=== PATIENT | female | born 1995 | race Caucasian/White ===

== ENCOUNTER 2020-09-26 07:30 | Inpatient (IN) ==
[2020-09-26] MEDS ORDERED: OXYTOCIN 30 UNITS/500 ML BAG IV PRN ×2 (07:40→07:41)
[2020-09-26 08:10] LABS: Hemoglobin 13.3 g/dL (12.0-16.0); Mean Corpuscular Hemoglobin 33.2 pg (25-34); Mean Corpuscular Volume 94.8 fL (80-100); Mean Platelet Volume 10.4 fL (7.4-10.4); Platelet Count 192 K/uL (130-400); RDW Coefficient of Variation 12.7 % (11.5-14.5); RDW Standard Deviation 43.9 fL (36.4-46.3); Red Blood Count 4.01 M/uL (4.2-5.4); White Blood Count 11.52 K/uL (4.8-10.8)
--- NOTE | 2020-09-26 08:19 | History & Physical Report ---
Date of Service September 26, 2020 Assessment & Plan (1) Encounter for induction of labor: Admission and Anticipated Discharge Date Admission Date: September 26, 2020 IUP at 40 5/7 weeks with excellent results from cervical balloon will begin pitocin augmentation of labor she is planning on epidural analgesia when painful anticipate vaginal History of Present Illness Primary Care Provider: Christianne Toledo Patient is a 25 yo white female EDC 09/21/20 who presents for continuation of induction of labor for postterm . She had a cervical balloon successfully placed last evening. she had mild contractions overnight but did not feel the balloon had fallen out. no blood show or SPROM. baby active. GBS negative- Blood Type A positive. has otherwise been uncomplicated. Allergies Allergy/AdvReac Type Severity Reaction Status Date / Time Penicillins Allergy Hives Verified 09/24/20 15:42 Home Medications Home Medications Medication Instructions Recorded Confirmed Type prenat.vits,flaquito,[id number] 1 tab PO DAILY 01/08/20 09/25/20 History docusate sodium 1 tab PO DAILY 04/15/20 09/25/20 History Patient History Medical History Chicken pox Encounter for anatomic survey Surgical History History of surgery on arm reset broken wrist. S/P tonsillectomy Status post wisdom tooth extraction Family History Aunt Colorectal cancer Other Anemia Anxiety Depression Diabetes Drinking problem Dyslipidemia Gestational diabetes Heart disease Hypertension Kidney disease Premature labor Thyroid disease Twin Denies family history of Ovarian cancer Breast cancer Social History Smoking Status: Never smoker Hx Alcohol Use: No Hx Substance Use: No Preferred Language: Guamanian Communication Ability: Effective Beliefs That Will Affect Care: None marital status: marital status details: Jorge Dos Santos (30) [phone] Current Living Situation: Spouse Current Living Situation Comment: lives with spouse, no pets current occupational status: employed current occupation: [employer] Feels Safe at Home: Yes Review of Systems All systems reviewed & are unremarkable except as noted in HPI & below Physical Exam Constitutional: WD/WN, vitals as above Respiratory: normal respiratory effort, lungs clear to auscultation Cardiovascular: RRR, no murmur, no edema Gastrointestinal (Abdomen): normal bowel sounds, soft, nontender, no hepatosplenomegaly Psychiatric: A+Ox3, euthymic affect Genitourinary: Manual OB Exam: + cervical dilation 5 cm, + cervical effacement 100% and + station -1 OB Exam Monitor Tracing: + external FHT monitor used, + external uterine monitor used, + category I and + normal FHT variability cervical balloon was expelled and sitting in the vagina. it was easily removed from the vagina after removing the water from the balloon. Code Status & VTE Plan VTE Prophylaxis Plan VTE Prophylaxis will be ordered: No Coding Level of Care Code None Diagnoses Encounter for induction of labor Z34.90
[2020-09-26] MEDS: LACTATED RINGER'S 1,000 ML IV PRN ×4 (08:26→21:01)
--- NOTE | 2020-09-26 09:25 | Labor Progress Brief Note ---
Date of Service September 26, 2020 Subjective Pt resting, notes ctx less frequent but rates 5/10 Assessment & Plan (1) : 25 y/o G1 at 40 5/7 wga, IOL 1. VSS 2. Fetus cat 1 3. Labor - pit at 1, plan to AROM when more uncomfortable after epidural 4. GBS neg 5. Epidural PRN Admission and Anticipated Discharge Date Admission Date: September 26, 2020 Physical Exam Constitutional: WD/WN, vitals as above no acute distress Gastrointestinal (Abdomen): Percussion/Palpation: abdomen soft; abdomen nontender and no guarding Small rash at clothing line noted, looks like scar but pt reports it is just irritation from clothing Genitourinary: OB Exam Abdomen: + regular contractions (q5min) OB Exam Monitor Tracing: + external FHT monitor used, + external uterine monitor used and + category I (135/mod/+accel/-decel) Results & Data ([facility]) Vital Signs (Past 12 Hours) Vital Signs Temp Pulse Resp BP 09/26/20 08:38 80 104/71 09/26/20 08:31 98.1 F 18 104/71 Coding Level of Care Code None Diagnoses Z34.90
--- NOTE | 2020-09-26 10:40 | Labor Progress Brief Note ---
Date of Service September 26, 2020 Subjective Reports more regular and painful ctx Assessment & Plan (1) : 25 y/o G1 at 40 5/7 wga, IOL 1. VSS 2. Fetus cat 1 3. Labor - pit at 7, plan to AROM when more uncomfortable and gets epidural 4. GBS neg 5. Epidural PRN Admission and Anticipated Discharge Date Admission Date: September 26, 2020 Physical Exam Genitourinary: OB Exam Abdomen: + regular contractions (q4min) Manual OB Exam: + cervical dilation (4-5), + cervical effacement 70% and + station -2 OB Exam Monitor Tracing: + external FHT monitor used, + external uterine monitor used and + category I (135/mod/+accel/-decel) Results & Data ([facility]) Vital Signs (Past 12 Hours) Vital Signs Temp Pulse Resp BP 09/26/20 08:38 80 104/71 09/26/20 08:31 98.1 F 18 104/71 Coding Level of Care Code None Diagnoses Z34.90
[2020-09-26] MEDS ORDERED: fentaNYL citrate 100 MCG/2 ML VIAL ONE ×2 (11:48→18:43)
[2020-09-26] MEDS ORDERED: SODIUM CHLORIDE 0.9% INJ 10 ML VIAL ONE (11:48)
[2020-09-26] MEDS ORDERED: BUPIVACAINE 0.25% 30 ML VIAL ONE (11:48)
[2020-09-26] MEDS ORDERED: ePHEDrine sulfate 50 MG/ML AMP ONE (11:48)
[2020-09-26] MEDS ORDERED: fentaNYL 2MCG/ML ROPIVACAINE 1.25MG/ML 100 ML BAG EPI ONE (11:49)
[2020-09-26] MEDS ORDERED: NALOXONE HCL 0.4 MG/1 ML VIAL/CARP IV PRN (12:12)
[2020-09-26] MEDS ORDERED: ePHEDrine sulfate 50 MG/ML AMP IV PRN (12:12)
[2020-09-26] MEDS ORDERED: PROMETHAZINE HCL 25 MG in SODIUM CHLORIDE 0.9% 50 ML IV PRN (12:12)
[2020-09-26] MEDS ORDERED: ONDANSETRON INJ 2 MG/ML 2 ML VIAL IV PRN (12:12)
[2020-09-26] MEDS ORDERED: diphenhydrAMINE 50 MG/ML VIAL IV PRN (12:12)
[2020-09-26] MEDS ORDERED: NALOXONE HCL 1 MG in SODIUM CHLORIDE 0.9% 1000ML 1,000 ML IV PRN (12:12)
--- NOTE | 2020-09-26 12:14 | Anesthesiology Consultation ---
Date of Service September 26, 2020 Assessment & Plan ASA ASA2 Proposed Anesthesia Anesthesia Type: Labor Epidural Risk / Benefits Reviewed With: PT / POA / Parent / Guardian, Accepts Plan and Informed Consent Obtained History Height/Weight Height: 5 ft 3 in Weight: 99.337 kg Allergies Allergy/AdvReac Type Severity Reaction Status Date / Time Penicillins Allergy Hives Verified 09/24/20 15:42 Medications Home Medications Medication Instructions Recorded Confirmed Last Taken prenat.vits,flaquito,ssr-kccf-smhtj 1 tab PO DAILY 01/08/20 09/26/20 09/25/20 13:00 docusate sodium 1 tab PO DAILY 04/15/20 09/26/20 09/25/20 13:00 Active Medications Generic Name Dose Route Start Last Admin Trade Name Freq PRN Reason Stop Dose Admin Lactated Ringer's 1,000 mls @ 125 mls/hr 09/26/20 07:40 09/26/20 12:20 Lr IV 09/28/20 07:39 999 mls/hr .Q8H PRN Administration L&D Protocol Protocol Oxytocin 30 units in 500 mls @ 11 mls/hr 09/26/20 07:41 09/26/20 11:35 Pitocin IV 09/28/20 07:40 0.66 units/hr .Q24H PRN 11 mls/hr Labor Induction/Augmentation Titration Protocol 0.66 UNITS/HR Past Medical History Medical History Chicken pox Encounter for anatomic survey Exercise / Class Metabolic Activity II 4-5 Yardwork/Stairs/Walk up hill Past Family History Family History Aunt Colorectal cancer Other Anemia Anxiety Depression Diabetes Drinking problem Dyslipidemia Gestational diabetes Heart disease Hypertension Kidney disease Premature labor Thyroid disease Twin Denies family history of Ovarian cancer Breast cancer Past Surgical History Surgical History History of surgery on arm reset broken wrist. S/P tonsillectomy Status post wisdom tooth extraction Past Anesthesia History No Hx of Anesthesia Complications and No Family Hx of Anesthesia Complications History of PONV No Hx of PONV and No Hx of Motion Sickness Social History Smoking Status: Never smoker Do You Dip or Chew Tobacco: No Hx Alcohol Use: No Hx Substance Use: No substance use type: does not use Review of Systems denies fever/cough/ colds/ chest pain/ SOB/ ALBERTO denies ALBERTO Physical Exam Vital Signs Last Vital Signs Temp 36.7 C 09/26/20 08:31 Pulse 78 09/26/20 12:53 Resp 18 09/26/20 08:31 BP 103/56 L 09/26/20 12:53 Pulse Ox 100 09/26/20 12:53 ENMT Mouth: no TMJ abnormality and no dentition abnormality Thyromental Distance: > or= 3.5 Finger Breadths Mallampati Class: II Neck neck extension not limited Respiratory normal respiratory effort; no respiratory distress Auscultation: lungs clear to auscultation bilaterally Cardiovascular Rate/Rhythm: regular rate and regular rhythm Neurologic moves all extremities Psychiatric Orientation: alert and oriented x 3 Testing Laboratory Results 09/26/20 07:51
--- NOTE | 2020-09-26 13:09 | Labor Progress Brief Note ---
Date of Service September 26, 2020 Subjective Comfortable with epidural Assessment & Plan (1) : 25 y/o G1 at 40 5/7 wga, IOL 1. VSS 2. Fetus cat 1 3. Labor - pit at 11, s/p arom. Continue augmentation 4. GBS neg 5. Epidural in place Admission and Anticipated Discharge Date Admission Date: September 26, 2020 Physical Exam Genitourinary: OB Exam Abdomen: + regular contractions (q3-4min) Manual OB Exam: + cervical dilation 5 cm, + cervical effacement 70% and + station -1 OB Exam Monitor Tracing: + external FHT monitor used, + external uterine monitor used and + category I (125/mod/+accel/-decel) AROM clear fluid Results & Data ([facility]) Vital Signs (Past 12 Hours) Vital Signs Temp Pulse Resp BP Pulse Ox 09/26/20 13:03 86 99 09/26/20 12:58 80 99 09/26/20 12:53 78 103/56 L 100 09/26/20 12:50 79 107/60 09/26/20 12:48 82 100/56 L 99 09/26/20 12:46 78 108/57 L 09/26/20 12:44 85 107/55 L 09/26/20 12:43 84 99 09/26/20 12:42 80 107/62 09/26/20 12:40 87 103/53 L 09/26/20 12:38 89 96/54 L 100 09/26/20 12:36 92 H 106/53 L 09/26/20 12:34 90 114/59 L 09/26/20 12:33 104 H 100 09/26/20 12:32 97 H 115/55 L 09/26/20 12:31 96 H 115/55 L 09/26/20 12:28 69 100 09/26/20 12:23 92 H 100 09/26/20 12:18 119 H 100 09/26/20 12:13 84 100 09/26/20 11:14 76 118/64 09/26/20 08:38 80 104/71 09/26/20 08:31 98.1 F 18 104/71 Coding Level of Care Code None Diagnoses Z34.90
--- NOTE | 2020-09-26 15:22 | Labor Progress Brief Note ---
Date of Service September 26, 2020 Subjective Comfortable with epidural Assessment & Plan (1) : 25 y/o G1 at 40 5/7 wga, IOL 1. VSS 2. Fetus cat 1 3. Labor - pit at 15, s/p arom. Will encourage peanut ball, head may be asynclitic 4. GBS neg 5. Epidural in place Admission and Anticipated Discharge Date Admission Date: September 26, 2020 Physical Exam Genitourinary: OB Exam Abdomen: + regular contractions (q3-4min) Manual OB Exam: + cervical dilation 5 cm, + cervical effacement 70% and + station -1 OB Exam Monitor Tracing: + external FHT monitor used, + external uterine monitor used and + category I (125/mod/+accel/-decel) Cervix is more present on pt's left, some caput Results & Data ([facility]) Vital Signs (Past 12 Hours) Vital Signs Temp Pulse Resp BP Pulse Ox 09/26/20 15:18 75 99 09/26/20 15:13 71 100 09/26/20 15:08 62 100 09/26/20 15:07 63 119/62 09/26/20 15:03 98.1 F 69 18 109/67 99 09/26/20 14:58 69 100 09/26/20 14:53 61 99 09/26/20 14:51 59 L 107/63 09/26/20 14:48 59 L 100 09/26/20 14:43 58 L 100 09/26/20 14:38 61 100 09/26/20 14:37 57 L 117/62 09/26/20 14:33 74 100 09/26/20 14:28 95 H 100 09/26/20 14:23 72 101/56 L 100 09/26/20 14:18 74 100 09/26/20 14:13 62 99 09/26/20 14:08 73 100 09/26/20 14:07 63 102/58 L 09/26/20 14:03 63 100 09/26/20 14:00 98.1 F 18 09/26/20 13:58 66 100 09/26/20 13:53 77 101/57 L 97 09/26/20 13:48 68 95/60 L 99 09/26/20 13:43 66 100 09/26/20 13:38 75 99 09/26/20 13:37 79 86/51 L 09/26/20 13:33 76 98 09/26/20 13:28 78 99 09/26/20 13:23 84 99 09/26/20 13:22 84 98/56 L 09/26/20 13:18 76 98 09/26/20 13:13 80 98 09/26/20 13:08 84 99 09/26/20 13:03 86 99 09/26/20 13:00 98.1 F 20 09/26/20 12:58 80 99 09/26/20 12:53 78 103/56 L 100 09/26/20 12:50 79 107/60 09/26/20 12:48 82 100/56 L 99 09/26/20 12:46 78 108/57 L 09/26/20 12:44 85 107/55 L 09/26/20 12:43 84 99 09/26/20 12:42 80 107/62 09/26/20 12:40 87 103/53 L 09/26/20 12:38 89 96/54 L 100 09/26/20 12:36 92 H 106/53 L 09/26/20 12:34 90 114/59 L 09/26/20 12:33 104 H 100 09/26/20 12:32 97 H 115/55 L 09/26/20 12:31 96 H 115/55 L 09/26/20 12:28 69 100 09/26/20 12:23 92 H 100 09/26/20 12:18 119 H 100 09/26/20 12:13 84 100 09/26/20 11:45 97.7 F 22 09/26/20 11:14 76 118/64 09/26/20 08:38 80 104/71 09/26/20 08:31 98.1 F 18 104/71 Coding Level of Care Code None Diagnoses Z34.90
[2020-09-26] MEDS ORDERED: NURSING L&D Epidural Breakthrough Pain Update ONE (17:39)
[2020-09-26] MEDS: fentaNYL 2MCG/ML ROPIVACAINE 1.25MG/ML 100 ML BAG EPI PRN ×2 (18:28→23:50)
[2020-09-26] MEDS ORDERED: LIDOCAINE/EPINEPHRINE 2% 1:200,000 20 ML SDV ONE (18:43)
--- NOTE | 2020-09-26 18:59 | Communication Note ---
Date of Service: September 26, 2020 pt given 100 mcg of fentanyl and 5 ml 2% lidocaine with epi through epidural for pain control.
--- NOTE | 2020-09-26 19:03 | Labor Progress Brief Note ---
Date of Service September 26, 2020 Subjective Increased ctx pain, was checked earlier by nursing due to pressure and is 8cm Assessment & Plan (1) : (1) : 25 y/o G1 at 40 5/7 wga, IOL 1. VSS 2. Fetus cat 1 3. Labor - pit at 19, s/p arom. Pt progressing on nursing's exam, will continue to monitor 4. GBS neg 5. Epidural in place, just rebolused by anesthesia Admission and Anticipated Discharge Date Admission Date: September 26, 2020 Physical Exam Genitourinary: OB Exam Abdomen: + regular contractions (q3) OB Exam Monitor Tracing: + external FHT monitor used, + external uterine monitor used and + category II (135/mod/+accel/intermit variables) Results & Data ([facility]) Vital Signs (Past 12 Hours) Vital Signs Temp Pulse Resp BP Pulse Ox 09/26/20 18:58 76 99 09/26/20 18:53 80 100 09/26/20 18:52 90 138/74 09/26/20 18:50 77 138/71 09/26/20 18:48 77 99 09/26/20 18:43 77 100 09/26/20 18:38 78 100 09/26/20 18:36 75 135/67 09/26/20 18:33 77 99 09/26/20 18:28 80 99 09/26/20 18:23 74 100 09/26/20 18:21 77 129/61 09/26/20 18:18 80 100 09/26/20 18:13 76 97 09/26/20 18:08 73 133/63 100 09/26/20 18:03 76 99 09/26/20 17:58 86 100 09/26/20 17:53 74 100 09/26/20 17:51 75 138/69 09/26/20 17:48 75 100 09/26/20 17:43 75 98 09/26/20 17:38 80 100 09/26/20 17:37 72 150/71 H 09/26/20 17:33 94 H 100 09/26/20 17:28 72 100 09/26/20 17:23 79 99 09/26/20 17:22 81 125/67 09/26/20 17:18 79 100 09/26/20 17:13 74 100 09/26/20 17:08 81 100 09/26/20 17:03 81 100 09/26/20 16:58 74 100 09/26/20 16:57 98.6 F 09/26/20 16:53 78 100 09/26/20 16:52 70 118/60 09/26/20 16:48 69 100 09/26/20 16:43 75 100 09/26/20 16:38 79 99 09/26/20 16:37 72 106/61 09/26/20 16:33 81 99 09/26/20 16:28 74 100 09/26/20 16:23 66 100 09/26/20 16:21 67 95/56 L 09/26/20 16:18 67 100 09/26/20 16:13 66 100 09/26/20 16:08 85 100 09/26/20 16:06 69 92/53 L 09/26/20 16:03 72 100 09/26/20 15:58 68 100 09/26/20 15:53 60 100 09/26/20 15:51 64 93/55 L 09/26/20 15:48 62 100 09/26/20 15:43 70 100 09/26/20 15:38 70 100 09/26/20 15:36 67 99/57 L 09/26/20 15:33 64 100 09/26/20 15:28 59 L 100 09/26/20 15:23 73 100 09/26/20 15:22 64 104/55 L 09/26/20 15:18 75 99 09/26/20 15:13 71 100 09/26/20 15:08 62 100 09/26/20 15:07 63 119/62 09/26/20 15:03 98.1 F 69 18 109/67 99 09/26/20 14:58 69 100 09/26/20 14:53 61 99 09/26/20 14:51 59 L 107/63 09/26/20 14:48 59 L 100 09/26/20 14:43 58 L 100 09/26/20 14:38 61 100 09/26/20 14:37 57 L 117/62 09/26/20 14:33 74 100 09/26/20 14:28 95 H 100 09/26/20 14:23 72 101/56 L 100 09/26/20 14:18 74 100 09/26/20 14:13 62 99 10/29/20 14:08 73 100 09/26/20 14:07 63 102/58 L 09/26/20 14:03 63 100 09/26/20 14:00 98.1 F 18 09/26/20 13:58 66 100 09/26/20 13:53 77 101/57 L 97 09/26/20 13:48 68 95/60 L 99 09/26/20 13:43 66 100 09/26/20 13:38 75 99 09/26/20 13:37 79 86/51 L 09/26/20 13:33 76 98 09/26/20 13:28 78 99 09/26/20 13:23 84 99 09/26/20 13:22 84 98/56 L 09/26/20 13:18 76 98 09/26/20 13:13 80 98 09/26/20 13:08 84 99 09/26/20 13:03 86 99 09/26/20 13:00 98.1 F 20 09/26/20 12:58 80 99 09/26/20 12:53 78 103/56 L 100 09/26/20 12:50 79 107/60 09/26/20 12:48 82 100/56 L 99 09/26/20 12:46 78 108/57 L 09/26/20 12:44 85 107/55 L 09/26/20 12:43 84 99 09/26/20 12:42 80 107/62 09/26/20 12:40 87 103/53 L 09/26/20 12:38 89 96/54 L 100 09/26/20 12:36 92 H 106/53 L 09/26/20 12:34 90 114/59 L 09/26/20 12:33 104 H 100 09/26/20 12:32 97 H 115/55 L 09/26/20 12:31 96 H 115/55 L 09/26/20 12:28 69 100 09/26/20 12:23 92 H 100 09/26/20 12:18 119 H 100 09/26/20 12:13 84 100 09/26/20 11:45 97.7 F 22 09/26/20 11:14 76 118/64 09/26/20 08:38 80 104/71 09/26/20 08:31 98.1 F 18 104/71 Coding Level of Care Code None Diagnoses Z34.90
--- NOTE | 2020-09-26 20:31 | Labor Progress Brief Note ---
Date of Service September 26, 2020 Subjective Feeling a lot of pressure with each contraction Assessment & Plan (1) : (1) : 25 y/o G1 at 40 5/7 wga, IOL 1. VSS 2. Fetus cat 1 3. Labor - pit at 20, IUPC placed for more accurate monitoring 4. GBS neg 5. Epidural in place, rebolused by anesthesia Admission and Anticipated Discharge Date Admission Date: September 26, 2020 Physical Exam Genitourinary: OB Exam Abdomen: + regular contractions (q3-4min) Manual OB Exam: + cervical dilation 8 cm, + cervical effacement 80% and + station -1 OB Exam Monitor Tracing: + external FHT monitor used, + intra-uterine pressure catheter used (placed) and + category I (135/mod/+accel/-decel) Results & Data ([facility]) Vital Signs (Past 12 Hours) Vital Signs Temp Pulse Resp BP Pulse Ox 09/26/20 20:23 70 100 09/26/20 20:21 74 93 09/26/20 20:18 78 96 09/26/20 20:13 80 100 09/26/20 20:08 81 99 09/26/20 20:07 87 93 09/26/20 20:03 78 100 09/26/20 19:58 82 100 09/26/20 19:56 66 91 09/26/20 19:53 76 99 09/26/20 19:52 88 142/65 H 09/26/20 19:50 77 94 09/26/20 19:48 81 99 09/26/20 19:44 79 92 09/26/20 19:43 77 95 09/26/20 19:38 84 98 09/26/20 19:36 83 145/68 H 09/26/20 19:33 78 99 09/26/20 19:28 83 100 09/26/20 19:26 80 94 09/26/20 19:23 79 99 09/26/20 19:18 82 100 09/26/20 19:15 81 93 09/26/20 19:13 84 100 09/26/20 19:08 85 20 99 09/26/20 19:03 80 96 09/26/20 18:58 76 99 09/26/20 18:53 80 100 09/26/20 18:52 90 138/74 09/26/20 18:50 77 138/71 09/26/20 18:48 77 99 09/26/20 18:43 77 100 09/26/20 18:38 78 100 09/26/20 18:36 75 135/67 09/26/20 18:33 77 99 09/26/20 18:28 80 99 09/26/20 18:23 74 100 09/26/20 18:21 77 129/61 09/26/20 18:18 80 100 09/26/20 18:13 76 97 09/26/20 18:08 73 133/63 100 09/26/20 18:03 76 99 09/26/20 17:58 86 100 09/26/20 17:53 74 100 09/26/20 17:51 75 138/69 09/26/20 17:48 75 100 09/26/20 17:43 75 98 09/26/20 17:38 80 100 09/26/20 17:37 72 150/71 H 09/26/20 17:33 94 H 100 09/26/20 17:28 72 100 09/26/20 17:23 79 99 09/26/20 17:22 81 125/67 09/26/20 17:18 79 100 09/26/20 17:13 74 100 09/26/20 17:08 81 100 09/26/20 17:03 81 100 09/26/20 16:58 74 100 09/26/20 16:57 98.6 F 09/26/20 16:53 78 100 09/26/20 16:52 70 118/60 09/26/20 16:48 69 100 09/26/20 16:43 75 100 09/26/20 16:38 79 99 09/26/20 16:37 72 106/61 09/26/20 16:33 81 99 09/26/20 16:28 74 100 09/26/20 16:23 66 100 09/26/20 16:21 67 95/56 L 09/26/20 16:18 67 100 09/26/20 16:13 66 100 09/26/20 16:08 85 100 09/26/20 16:06 69 92/53 L 09/26/20 16:03 72 100 09/26/20 15:58 68 100 09/26/20 15:53 60 100 09/26/20 15:51 64 93/55 L 09/26/20 15:48 62 100 09/26/20 15:43 70 100 09/26/20 15:38 70 100 09/26/20 15:36 67 99/57 L 09/26/20 15:33 64 100 09/26/20 15:28 59 L 100 09/26/20 15:23 73 100 09/26/20 15:22 64 104/55 L 09/26/20 15:18 75 99 09/26/20 15:13 71 100 09/26/20 15:08 62 100 09/26/20 15:07 63 119/62 09/26/20 15:03 98.1 F 69 18 109/67 99 09/26/20 14:58 69 100 09/26/20 14:53 61 99 09/26/20 14:51 59 L 107/63 09/26/20 14:48 59 L 100 09/26/20 14:43 58 L 100 09/26/20 14:38 61 100 09/26/20 14:37 57 L 117/62 09/26/20 14:33 74 100 09/26/20 14:28 95 H 100 09/26/20 14:23 72 101/56 L 100 09/26/20 14:18 74 100 09/26/20 14:13 62 99 09/26/20 14:08 73 100 09/26/20 14:07 63 102/58 L 09/26/20 14:03 63 100 09/26/20 14:00 98.1 F 18 09/26/20 13:58 66 100 09/26/20 13:53 77 101/57 L 97 09/26/20 13:48 68 95/60 L 99 09/26/20 13:43 66 100 09/26/20 13:38 75 99 09/26/20 13:37 79 86/51 L 09/26/20 13:33 76 98 09/26/20 13:28 78 99 09/26/20 13:23 84 99 09/26/20 13:22 84 98/56 L 09/26/20 13:18 76 98 09/26/20 13:13 80 98 09/26/20 13:08 84 99 09/26/20 13:03 86 99 09/26/20 13:00 98.1 F 20 09/26/20 12:58 80 99 10/29/20 12:53 78 103/56 L 100 09/26/20 12:50 79 107/60 09/26/20 12:48 82 100/56 L 99 09/26/20 12:46 78 108/57 L 09/26/20 12:44 85 107/55 L 09/26/20 12:43 84 99 09/26/20 12:42 80 107/62 09/26/20 12:40 87 103/53 L 09/26/20 12:38 89 96/54 L 100 09/26/20 12:36 92 H 106/53 L 09/26/20 12:34 90 114/59 L 09/26/20 12:33 104 H 100 09/26/20 12:32 97 H 115/55 L 09/26/20 12:31 96 H 115/55 L 09/26/20 12:28 69 100 09/26/20 12:23 92 H 100 09/26/20 12:18 119 H 100 09/26/20 12:13 84 100 09/26/20 11:45 97.7 F 22 09/26/20 11:14 76 118/64 09/26/20 08:38 80 104/71 09/26/20 08:31 98.1 F 18 104/71 Coding Level of Care Code None Diagnoses Z34.90
--- NOTE | 2020-09-26 21:37 | Labor Progress Brief Note ---
Date of Service September 26, 2020 Subjective Very strong urge to push Assessment & Plan (1) : (1) : 25 y/o G1 at 40 5/7 wga, IOL 1. VSS 2. Fetus cat 1 3. Labor - pit at 20, IUPC in place. Rec not pushing quite yet due to lip anteriorly. Has progressed a little bit since last exam, continue to monitor 4. GBS neg 5. Epidural in place, rebolused by anesthesia Admission and Anticipated Discharge Date Admission Date: September 26, 2020 Physical Exam Genitourinary: OB Exam Abdomen: + regular contractions (q3-4min) Manual OB Exam: + cervical dilation 9 cm, + cervical effacement 90% and + station 0 OB Exam Monitor Tracing: + external FHT monitor used, + intra-uterine pressure catheter used (placed) and + category I (120/mod/+accel/-decel) Results & Data ([facility]) Vital Signs (Past 12 Hours) Vital Signs Temp Pulse Resp BP Pulse Ox 09/26/20 21:33 81 100 09/26/20 21:28 87 99 09/26/20 21:23 111 H 99 09/26/20 21:18 102 H 100 09/26/20 21:16 82 89 L 09/26/20 21:13 80 99 09/26/20 21:10 82 89 L 09/26/20 21:08 97 H 99 09/26/20 21:03 78 98 09/26/20 20:58 70 100 09/26/20 20:53 70 98 09/26/20 20:52 98.1 F 18 09/26/20 20:48 71 98 09/26/20 20:46 81 129/66 09/26/20 20:43 85 100 09/26/20 20:40 88 93 09/26/20 20:38 72 98 09/26/20 20:34 78 93 09/26/20 20:33 77 94 09/26/20 20:28 74 97 09/26/20 20:27 71 92 09/26/20 20:23 70 100 09/26/20 20:21 74 93 09/26/20 20:18 78 96 09/26/20 20:13 80 100 09/26/20 20:08 81 99 09/26/20 20:07 87 93 09/26/20 20:03 78 100 09/26/20 19:58 82 100 09/26/20 19:56 66 91 09/26/20 19:53 76 99 09/26/20 19:52 88 142/65 H 09/26/20 19:50 77 94 09/26/20 19:48 81 99 09/26/20 19:44 79 92 09/26/20 19:43 77 95 09/26/20 19:38 84 98 09/26/20 19:36 83 145/68 H 09/26/20 19:33 78 99 09/26/20 19:28 83 100 09/26/20 19:26 80 94 09/26/20 19:23 79 99 09/26/20 19:18 82 100 09/26/20 19:15 81 93 09/26/20 19:13 84 100 09/26/20 19:08 85 20 99 09/26/20 19:03 80 96 09/26/20 18:58 76 99 09/26/20 18:53 80 100 09/26/20 18:52 90 138/74 09/26/20 18:50 77 138/71 09/26/20 18:48 77 99 09/26/20 18:43 77 100 09/26/20 18:38 78 100 09/26/20 18:36 75 135/67 09/26/20 18:33 77 99 09/26/20 18:28 80 99 09/26/20 18:23 74 100 09/26/20 18:21 77 129/61 09/26/20 18:18 80 100 09/26/20 18:13 76 97 09/26/20 18:08 73 133/63 100 09/26/20 18:03 76 99 09/26/20 17:58 86 100 09/26/20 17:53 74 100 09/26/20 17:51 75 138/69 09/26/20 17:48 75 100 09/26/20 17:43 75 98 09/26/20 17:38 80 100 09/26/20 17:37 72 150/71 H 09/26/20 17:33 94 H 100 09/26/20 17:28 72 100 09/26/20 17:23 79 99 09/26/20 17:22 81 125/67 09/26/20 17:18 79 100 09/26/20 17:13 74 100 10/29/20 17:08 81 100 09/26/20 17:03 81 100 09/26/20 16:58 74 100 09/26/20 16:57 98.6 F 09/26/20 16:53 78 100 09/26/20 16:52 70 118/60 09/26/20 16:48 69 100 09/26/20 16:43 75 100 09/26/20 16:38 79 99 09/26/20 16:37 72 106/61 09/26/20 16:33 81 99 09/26/20 16:28 74 100 09/26/20 16:23 66 100 09/26/20 16:21 67 95/56 L 09/26/20 16:18 67 100 09/26/20 16:13 66 100 09/26/20 16:08 85 100 09/26/20 16:06 69 92/53 L 09/26/20 16:03 72 100 09/26/20 15:58 68 100 09/26/20 15:53 60 100 09/26/20 15:51 64 93/55 L 09/26/20 15:48 62 100 09/26/20 15:43 70 100 09/26/20 15:38 70 100 09/26/20 15:36 67 99/57 L 09/26/20 15:33 64 100 09/26/20 15:28 59 L 100 09/26/20 15:23 73 100 09/26/20 15:22 64 104/55 L 09/26/20 15:18 75 99 09/26/20 15:13 71 100 09/26/20 15:08 62 100 09/26/20 15:07 63 119/62 09/26/20 15:03 98.1 F 69 18 109/67 99 09/26/20 14:58 69 100 09/26/20 14:53 61 99 09/26/20 14:51 59 L 107/63 09/26/20 14:48 59 L 100 09/26/20 14:43 58 L 100 09/26/20 14:38 61 100 09/26/20 14:37 57 L 117/62 09/26/20 14:33 74 100 09/26/20 14:28 95 H 100 09/26/20 14:23 72 101/56 L 100 09/26/20 14:18 74 100 09/26/20 14:13 62 99 09/26/20 14:08 73 100 09/26/20 14:07 63 102/58 L 09/26/20 14:03 63 100 09/26/20 14:00 98.1 F 18 09/26/20 13:58 66 100 09/26/20 13:53 77 101/57 L 97 09/26/20 13:48 68 95/60 L 99 09/26/20 13:43 66 100 09/26/20 13:38 75 99 09/26/20 13:37 79 86/51 L 09/26/20 13:33 76 98 09/26/20 13:28 78 99 09/26/20 13:23 84 99 09/26/20 13:22 84 98/56 L 09/26/20 13:18 76 98 09/26/20 13:13 80 98 09/26/20 13:08 84 99 09/26/20 13:03 86 99 09/26/20 13:00 98.1 F 20 09/26/20 12:58 80 99 09/26/20 12:53 78 103/56 L 100 09/26/20 12:50 79 107/60 09/26/20 12:48 82 100/56 L 99 09/26/20 12:46 78 108/57 L 09/26/20 12:44 85 107/55 L 09/26/20 12:43 84 99 09/26/20 12:42 80 107/62 09/26/20 12:40 87 103/53 L 09/26/20 12:38 89 96/54 L 100 09/26/20 12:36 92 H 106/53 L 09/26/20 12:34 90 114/59 L 09/26/20 12:33 104 H 100 09/26/20 12:32 97 H 115/55 L 09/26/20 12:31 96 H 115/55 L 09/26/20 12:28 69 100 09/26/20 12:23 92 H 100 09/26/20 12:18 119 H 100 09/26/20 12:13 84 100 09/26/20 11:45 97.7 F 22 09/26/20 11:14 76 118/64 Coding Level of Care Code None Diagnoses Z34.90
--- NOTE | 2020-09-26 23:27 | Labor Progress Brief Note ---
Date of Service September 26, 2020 Subjective Strong urge to push Assessment & Plan (1) : (1) : 25 y/o G1 at 40 5/7 wga, IOL 1. VSS 2. Fetus cat 1 3. Labor - pit was halved and paused with initial pushing, will start pushing as lip has gone away and add pit back as needed 4. GBS neg 5. Epidural in place, rebolused by anesthesia Admission and Anticipated Discharge Date Admission Date: September 26, 2020 Physical Exam Genitourinary: OB Exam Abdomen: + regular contractions (q3-5min) Manual OB Exam: + cervical dilation 10 cm, + cervical effacement 90% and + station + 1 OB Exam Monitor Tracing: + external FHT monitor used, + intra-uterine pressure catheter used (placed) and + category I (130/mod/+accel/-decel) Results & Data ([facility]) Vital Signs (Past 12 Hours) Vital Signs Temp Pulse Resp BP Pulse Ox 09/26/20 23:23 77 97 09/26/20 23:18 104 H 98 09/26/20 23:15 107 H 91 09/26/20 23:13 74 99 09/26/20 23:08 106 H 99 09/26/20 23:03 80 99 09/26/20 23:00 95 H 92 09/26/20 22:58 100 H 98 09/26/20 22:53 76 99 09/26/20 22:48 80 100 09/26/20 22:43 75 99 09/26/20 22:42 70 134/62 09/26/20 22:40 97 H 92 09/26/20 22:39 98.6 F 20 09/26/20 22:38 73 97 09/26/20 22:33 75 99 09/26/20 22:28 80 99 09/26/20 22:23 79 100 09/26/20 22:19 98 H 92 09/26/20 22:18 78 96 09/26/20 22:13 75 97 09/26/20 22:08 83 98 09/26/20 22:04 86 92 09/26/20 22:03 75 100 09/26/20 21:58 76 94 09/26/20 21:55 74 133/64 09/26/20 21:54 18 09/26/20 21:53 80 98 09/26/20 21:48 76 98 09/26/20 21:43 87 100 09/26/20 21:38 73 100 09/26/20 21:33 81 100 09/26/20 21:28 87 99 09/26/20 21:23 111 H 99 09/26/20 21:18 102 H 100 09/26/20 21:16 82 89 L 09/26/20 21:13 80 99 09/26/20 21:10 82 89 L 09/26/20 21:08 97 H 99 09/26/20 21:03 78 98 09/26/20 20:58 70 100 09/26/20 20:53 70 98 09/26/20 20:52 98.1 F 18 09/26/20 20:48 71 98 09/26/20 20:46 81 129/66 09/26/20 20:43 85 100 09/26/20 20:40 88 93 09/26/20 20:38 72 98 09/26/20 20:34 78 93 09/26/20 20:33 77 94 09/26/20 20:28 74 97 09/26/20 20:27 71 92 09/26/20 20:23 70 100 09/26/20 20:21 74 93 09/26/20 20:18 78 96 09/26/20 20:13 80 100 09/26/20 20:08 81 99 09/26/20 20:07 87 93 09/26/20 20:03 78 100 09/26/20 19:58 82 100 09/26/20 19:56 66 91 09/26/20 19:53 76 99 09/26/20 19:52 88 142/65 H 09/26/20 19:50 77 94 09/26/20 19:48 81 99 09/26/20 19:44 79 92 09/26/20 19:43 77 95 09/26/20 19:38 84 98 09/26/20 19:36 83 145/68 H 09/26/20 19:33 78 99 09/26/20 19:28 83 100 09/26/20 19:26 80 94 09/26/20 19:23 79 99 09/26/20 19:18 82 100 09/26/20 19:15 81 93 09/26/20 19:13 84 100 09/26/20 19:08 85 20 99 09/26/20 19:03 80 96 09/26/20 18:58 76 99 09/26/20 18:53 80 100 09/26/20 18:52 90 138/74 09/26/20 18:50 77 138/71 09/26/20 18:48 77 99 09/26/20 18:43 77 100 09/26/20 18:38 78 100 09/26/20 18:36 75 135/67 09/26/20 18:33 77 99 09/26/20 18:28 80 99 09/26/20 18:23 74 100 09/26/20 18:21 77 129/61 09/26/20 18:18 80 100 09/26/20 18:13 76 97 09/26/20 18:08 73 133/63 100 09/26/20 18:03 76 99 09/26/20 17:58 86 100 09/26/20 17:53 74 100 09/26/20 17:51 75 138/69 09/26/20 17:48 75 100 09/26/20 17:43 75 98 09/26/20 17:38 80 100 09/26/20 17:37 72 150/71 H 09/26/20 17:33 94 H 100 09/26/20 17:28 72 100 09/26/20 17:23 79 99 09/26/20 17:22 81 125/67 09/26/20 17:18 79 100 09/26/20 17:13 74 100 09/26/20 17:08 81 100 09/26/20 17:03 81 100 09/26/20 16:58 74 100 09/26/20 16:57 98.6 F 09/26/20 16:53 78 100 09/26/20 16:52 70 118/60 09/26/20 16:48 69 100 09/26/20 16:43 75 100 09/26/20 16:38 79 99 09/26/20 16:37 72 106/61 09/26/20 16:33 81 99 09/26/20 16:28 74 100 09/26/20 16:23 66 100 09/26/20 16:21 67 95/56 L 09/26/20 16:18 67 100 09/26/20 16:13 66 100 09/26/20 16:08 85 100 09/26/20 16:06 69 92/53 L 09/26/20 16:03 72 100 09/26/20 15:58 68 100 09/26/20 15:53 60 100 09/26/20 15:51 64 93/55 L 09/26/20 15:48 62 100 09/26/20 15:43 70 100 09/26/20 15:38 70 100 09/26/20 15:36 67 99/57 L 09/26/20 15:33 64 100 09/26/20 15:28 59 L 100 09/26/20 15:23 73 100 09/26/20 15:22 64 104/55 L 09/26/20 15:18 75 99 09/26/20 15:13 71 100 09/26/20 15:08 62 100 09/26/20 15:07 63 119/62 09/26/20 15:03 98.1 F 69 18 109/67 99 09/26/20 14:58 69 100 09/26/20 14:53 61 99 09/26/20 14:51 59 L 107/63 09/26/20 14:48 59 L 100 09/26/20 14:43 58 L 100 09/26/20 14:38 61 100 09/26/20 14:37 57 L 117/62 09/26/20 14:33 74 100 09/26/20 14:28 95 H 100 09/26/20 14:23 72 101/56 L 100 09/26/20 14:18 74 100 09/26/20 14:13 62 99 09/26/20 14:08 73 100 09/26/20 14:07 63 102/58 L 09/26/20 14:03 63 100 09/26/20 14:00 98.1 F 18 09/26/20 13:58 66 100 09/26/20 13:53 77 101/57 L 97 09/26/20 13:48 68 95/60 L 99 09/26/20 13:43 66 100 09/26/20 13:38 75 99 09/26/20 13:37 79 86/51 L 09/26/20 13:33 76 98 09/26/20 13:28 78 99 09/26/20 13:23 84 99 09/26/20 13:22 84 98/56 L 09/26/20 13:18 76 98 09/26/20 13:13 80 98 09/26/20 13:08 84 99 09/26/20 13:03 86 99 09/26/20 13:00 98.1 F 20 09/26/20 12:58 80 99 09/26/20 12:53 78 103/56 L 100 09/26/20 12:50 79 107/60 09/26/20 12:48 82 100/56 L 99 09/26/20 12:46 78 108/57 L 09/26/20 12:44 85 107/55 L 09/26/20 12:43 84 99 09/26/20 12:42 80 107/62 09/26/20 12:40 87 103/53 L 09/26/20 12:38 89 96/54 L 100 09/26/20 12:36 92 H 106/53 L 09/26/20 12:34 90 114/59 L 09/26/20 12:33 104 H 100 09/26/20 12:32 97 H 115/55 L 09/26/20 12:31 96 H 115/55 L 09/26/20 12:28 69 100 09/26/20 12:23 92 H 100 09/26/20 12:18 119 H 100 09/26/20 12:13 84 100 09/26/20 11:45 97.7 F 22 Coding Level of Care Code None Diagnoses Z34.90
[2020-09-27] MEDS ORDERED: GENTAMICIN SULFATE 40 MG/ML 2 ML VIAL IV ONE (01:01)
[2020-09-27] MEDS ORDERED: GENTAMICIN CONSULT ACTIVE PRN (01:01)
[2020-09-27] MEDS ORDERED: AZITHROMYCIN 500 MG in DEXTROSE 5% 250 ML IV STA (01:02)
[2020-09-27] MEDS ORDERED: fentaNYL citrate 100 MCG/2 ML VIAL ONE ×5 (01:03→01:50)
[2020-09-27] MEDS ORDERED: LIDOCAINE/EPINEPHRINE 2% 1:200,000 20 ML SDV ONE (01:05)
[2020-09-27] MEDS ORDERED: CLINDAMYCIN 900 MG in DEXTROSE 5% 50 ML IV ONE (01:15)
[2020-09-27] MEDS ORDERED: GENTAMICIN SULFATE 500 MG in DEXTROSE 5% 100 ML IV ONE (01:15)
[2020-09-27] MEDS ORDERED: ePHEDrine sulfate 50 MG/ML AMP ONE (01:21)
[2020-09-27] MEDS ORDERED: OXYTOCIN 10 UNITS/ML VIAL ONE (01:21)
[2020-09-27] MEDS ORDERED: PROPOFOL IV EMULSION 10 MG/ML 20 ML VIAL IV ONE (01:21)
[2020-09-27] MEDS ORDERED: MIDAZOLAM HCL 1 MG/ML 2ML VIAL ONE (01:22)
[2020-09-27] MEDS ORDERED: METHYLERGONOVINE MALEATE 0.2 MG/ML AMP ONE (01:26)
[2020-09-27] MEDS ORDERED: CHLOROPROCAINE HCL 3% 20 ML VIAL ONE (01:49)
[2020-09-27 01:58] LABS: Base Excess Cord Arterial Bld -8.5 mEq/L (-9-1.8); Base Excess Cord Venous Blood -8.7 mEq/L (-7.7-1.9); CO2 Cord Arterial Blood 54 mmHg (39.1-73.5); Cord Venous Blood HCO3 19 mmol/L (18.4-26.8); Cord Venous Blood PCO2 46 mmHg (30.4-57.2); Cord Venous Blood PO2 23 mmHg (14.1-43.3); Cord Venous Blood pH 7.23 (7.20-7.44); HCO3 Cord Arterial Blood 20 mmol/L (19.7-28.5); PO2 Cord Arterial Blood 20 mmHg (4.1-31.7); pH Cord Arterial Blood 7.19 (7.1-7.38)
[2020-09-27 01:59] LABS: O2 Saturation Cord Venous Bld < 68.0 % (<68); Oxygen Sat Cord Arterial Blood < 60.0 % (<60)
[2020-09-27] MEDS ORDERED: HYDROmorphone PCA 30 MG/30 ML IV ONE (02:19)
[2020-09-27] MEDS ORDERED: TERBUTALINE SULFATE 1 MG/ML VIAL SQ ONE (02:39)
--- NOTE | 2020-09-27 02:54 | Post Operative Brief Note ---
PG Immediate Post Op with CF Date of Surgery September 27, 2020 Pre & Post Diagnosis Operation Date: 09/27/20 00:45 Pre-Op Diagnosis: Non reasurring heart tones Post-Op Diagnosis: Same as Pre Op I identified the patient and participated in the time-out.: Yes Procedure Operation Date: 09/27/20 00:45 Actual Procedures p Primary Section in LD for the of a viable female child at 0120. - Noris Tabor MD Surgeon Noris Tabor MD Deputy Chief Counsel Dayami Leyva Estimated Blood Loss 600 Findings Consistent with Post-Op Diagnosis Specimens Specimen Description: 1.) Cord Gases 2.) Cord Blood 3.) Placenta - Exam Drains Pandya Catheter Anesthesia Type General Regional Disposition Accompanied Patient To Recovery: Yes Disposition: L&D
[2020-09-27] MEDS ORDERED: BENZOCAINE 20% AER SPR 82.5 GM CAN EXT PRN (02:55)
[2020-09-27] MEDS ORDERED: OXYTOCIN 20 UNITS in LACTATED RINGER'S 1,000 ML IV SCH (02:55)
[2020-09-27] MEDS ORDERED: DIPHTHERIA/TETANUS/PERTUSSIS 0.5 ML SYR/VIAL IM ONE (02:55)
[2020-09-27] MEDS ORDERED: SUPERCREAM 0.870% 15 GM JAR EXT PRN (02:55)
[2020-09-27] MEDS ORDERED: SODIUM CHLORIDE 0.9% 1000ML 1,000 ML IV SCH ×2 (02:55→14:00)
[2020-09-27] MEDS ORDERED: MAGNESIUM HYDROXIDE SUSP 30 ML UDC PO PRN (02:55)
[2020-09-27] MEDS ORDERED: PROMETHAZINE HCL 25 MG in SODIUM CHLORIDE 0.9% 50 ML IV PRN (02:55)
[2020-09-27] MEDS ORDERED: SENNA 8.6 MG TAB PO PRN (02:55)
[2020-09-27] MEDS ORDERED: ONDANSETRON INJ 2 MG/ML 2 ML VIAL IV PRN (02:55)
[2020-09-27] MEDS ORDERED: NALOXONE HCL 0.4 MG/1 ML VIAL/CARP IV PRN ×2 (02:55→13:46)
[2020-09-27] MEDS ORDERED: diphenhydrAMINE 50 MG/ML VIAL IV PRN (02:55)
[2020-09-27] MEDS ORDERED: diphenhydrAMINE Capsule 25 MG CAP PO PRN (02:55)
[2020-09-27] MEDS ORDERED: HYDROCORTISONE ACETATE 25 MG SUPP PR PRN (02:55)
--- NOTE | 2020-09-27 03:00 | Labor Progress Brief Note ---
Date of Service September 27, 2020 Subjective Delayed entry due to pt care. Pt had been pushing approx 1hr and 45 minutes, longer recovery from each contraction noted. Some progress but not significant. Pt desired to discuss plan of care with myself due to maternal exhaustion. I presented to room and discussed plan while pt was pushing. At this time, fetus was noted to decel to 80s. Did not improve with repositioning, O2, pit discontinuation, and terbutaline. After decel in 80s for 5 minutes, stat sugar matthews was called. Operative delivery was considered however station was felt to be too high for vacuum and prior leopolds were concerning for larger baby. Pt was verbally consented for emergent procedure. Anesthesia and peds made aware. Upon arriving to OR, pt was placed back on monitor while awaiting anesthesia and heart tones had improved. However, given NRFHT, station, and maternal fatigue, decision was made to proceed with delivery via CS Assessment & Plan Admission and Anticipated Discharge Date Admission Date: September 26, 2020 Results & Data ([facility]) Vital Signs (Past 12 Hours) Vital Signs Temp Pulse Resp BP Pulse Ox 09/27/20 02:52 90 109/60 09/27/20 02:51 94 H 97 09/27/20 02:47 101 H 103/51 L 09/27/20 02:46 103 H 99/59 L 95 09/27/20 02:45 100 H 110/61 09/27/20 00:43 107 H 100 09/27/20 00:38 101 H 99 09/27/20 00:34 89 84 L 09/27/20 00:33 85 99 09/27/20 00:28 92 H 94 09/27/20 00:27 97 H 93 09/27/20 00:23 75 99 09/27/20 00:20 82 85 L 09/27/20 00:18 74 99 09/27/20 00:13 98 H 98 09/27/20 00:12 99 H 92 09/27/20 00:08 86 131/74 96 09/27/20 00:05 75 88 L 09/27/20 00:03 97 H 98 09/26/20 23:59 83 88 L 09/26/20 23:58 79 98 09/26/20 23:53 79 98 09/26/20 23:51 86 79 L 09/26/20 23:48 99 H 98 09/26/20 23:45 91 H 90 09/26/20 23:43 107 H 98 09/26/20 23:38 98.1 F 85 18 131/62 98 09/26/20 23:36 84 88 L 09/26/20 23:33 92 H 98 09/26/20 23:30 101 H 91 09/26/20 23:28 105 H 97 09/26/20 23:23 77 97 09/26/20 23:18 104 H 98 09/26/20 23:15 107 H 91 09/26/20 23:13 74 99 09/26/20 23:08 106 H 99 09/26/20 23:04 20 09/26/20 23:03 80 99 09/26/20 23:00 95 H 92 09/26/20 22:58 100 H 98 09/26/20 22:53 76 99 09/26/20 22:48 80 100 09/26/20 22:43 75 99 09/26/20 22:42 70 134/62 09/26/20 22:40 97 H 92 09/26/20 22:39 98.6 F 20 09/26/20 22:38 73 97 09/26/20 22:33 75 99 09/26/20 22:28 80 99 09/26/20 22:23 79 100 09/26/20 22:19 98 H 92 09/26/20 22:18 78 96 09/26/20 22:13 75 97 09/26/20 22:08 83 98 09/26/20 22:04 86 92 09/26/20 22:03 75 100 09/26/20 21:58 76 94 09/26/20 21:55 74 133/64 09/26/20 21:54 18 09/26/20 21:53 80 98 09/26/20 21:48 76 98 09/26/20 21:43 87 100 09/26/20 21:38 73 100 09/26/20 21:33 81 100 09/26/20 21:28 87 99 09/26/20 21:23 111 H 99 09/26/20 21:18 102 H 100 09/26/20 21:16 82 89 L 09/26/20 21:13 80 99 09/26/20 21:10 82 89 L 09/26/20 21:08 97 H 99 20 21:03 78 98 20 20:58 70 100 20 20:53 70 98 20 20:52 98.1 F 18 09/26/20 20:48 71 98 20 20:46 81 129/66 20 20:43 85 100 20 20:40 88 93 20 20:38 72 98 20 20:34 78 93 20 20:33 77 94 20 20:28 74 97 20 20:27 71 92 20 20:23 70 100 20 20:21 74 93 09/26/20 20:18 78 96 09/26/20 20:13 80 100 20 20:08 81 99 09/26/20 20:07 87 93 09/26/20 20:03 78 100 09/26/20 19:58 82 100 09/26/20 19:56 66 91 09/26/20 19:53 76 99 20 19:52 88 142/65 H 09/26/20 19:50 77 94 09/26/20 19:48 81 99 09/26/20 19:44 79 92 09/26/20 19:43 77 95 09/26/20 19:38 84 98 09/26/20 19:36 83 145/68 H 09/26/20 19:33 78 99 09/26/20 19:28 83 100 20 19:26 80 94 09/26/20 19:23 79 99 09/26/20 19:18 82 100 20 19:15 81 93 09/26/20 19:13 84 100 20 19:08 85 20 99 09/26/20 19:03 80 96 20 18:58 76 99 09/26/20 18:53 80 100 20 18:52 90 138/74 20 18:50 77 138/71 20 18:48 77 99 20 18:43 77 100 20 18:38 78 100 20 18:36 75 135/67 10/29/20 18:33 77 99 10/29/20 18:28 80 99 09/26/20 18:23 74 100 09/26/20 18:21 77 129/61 09/26/20 18:18 80 100 09/26/20 18:13 76 97 09/26/20 18:08 73 133/63 100 09/26/20 18:03 76 99 09/26/20 17:58 86 100 09/26/20 17:53 74 100 09/26/20 17:51 75 138/69 09/26/20 17:48 75 100 09/26/20 17:43 75 98 09/26/20 17:38 80 100 09/26/20 17:37 72 150/71 H 09/26/20 17:33 94 H 100 09/26/20 17:28 72 100 09/26/20 17:23 79 99 09/26/20 17:22 81 125/67 09/26/20 17:18 79 100 09/26/20 17:13 74 100 09/26/20 17:08 81 100 09/26/20 17:03 81 100 09/26/20 16:58 74 100 09/26/20 16:57 98.6 F 09/26/20 16:53 78 100 09/26/20 16:52 70 118/60 09/26/20 16:48 69 100 09/26/20 16:43 75 100 09/26/20 16:38 79 99 09/26/20 16:37 72 106/61 09/26/20 16:33 81 99 09/26/20 16:28 74 100 09/26/20 16:23 66 100 09/26/20 16:21 67 95/56 L 09/26/20 16:18 67 100 09/26/20 16:13 66 100 09/26/20 16:08 85 100 09/26/20 16:06 69 92/53 L 09/26/20 16:03 72 100 09/26/20 15:58 68 100 09/26/20 15:53 60 100 09/26/20 15:51 64 93/55 L 09/26/20 15:48 62 100 09/26/20 15:43 70 100 09/26/20 15:38 70 100 09/26/20 15:36 67 99/57 L 09/26/20 15:33 64 100 09/26/20 15:28 59 L 100 09/26/20 15:23 73 100 09/26/20 15:22 64 104/55 L 09/26/20 15:18 75 99 09/26/20 15:13 71 100 09/26/20 15:08 62 100 09/26/20 15:07 63 119/62 09/26/20 15:03 98.1 F 69 18 109/67 99 09/26/20 14:58 69 100 Coding Level of Care Code None
[2020-09-27] MEDS ORDERED: CLINDAMYCIN PHOS 900 MG/6 ML VIAL IV SCH (06:00)
[2020-09-27] MEDS: KETOROLAC 30 MG/ML VIAL IV PRN ×2 (06:45→14:52)
[2020-09-27] MEDS: DOCUSATE SODIUM 100 MG CAP PO SCH ×2 (07:41→20:16)
[2020-09-27] MEDS: PRENATAL VITAMIN 1 TAB PO SCH (07:41)
[2020-09-27] MEDS: FERROUS SULFATE 325 MG TAB PO SCH (07:41)
[2020-09-27] MEDS: SIMETHICONE 80 MG CHEW PO SCH ×4 (07:49→20:16)
--- NOTE | 2020-09-27 08:17 | Operative Report (OR) ---
DATE OF OPERATION: 09/27/2020 PREOPERATIVE DIAGNOSES: 1. Single intrauterine at 40-6/7 weeks' gestational age. 2. Induction of labor. 3. Nonreassuring heart tones. POSTOPERATIVE DIAGNOSIS: 1. Single intrauterine at 40-6/7 weeks' gestational age. 2. Induction of labor. 3. Nonreassuring heart tones. 4. Delivered. PROCEDURE: Primary low transverse section. SURGEON: Noris Tabor MD. FIG WASHER: Dayami Leyva ANESTHESIA: Epidural converted to general endotracheal anesthesia. ESTIMATED BLOOD LOSS: 600 mL DRAINS: Pandya draining clear urine. SPECIMENS: Placenta, cord gases, cord blood. COMPLICATIONS: None. CONDITION: mother and infant stable in immediate period. FINDINGS: Normal appearing uterus, bilateral fallopian tubes and ovaries. Findings also include a viable female weighing 6 pounds 12.5 ounces with Apgars of 8 and 9 at 1 and 5 minutes respectively. INDICATIONS: Rishi is a 25-year-old G1 at 40-6/7 weeks gestational age who presented 1 day ago for postdates/elective induction of labor. She had received a Pandya bulb the night before and it subsequently expulsed. On admission, she was found to be 5 cm. Oxytocin was initiated for further augmentation. She received an epidural for pain control. She underwent artificial rupture of membranes and subsequently progressed to complete-complete and +1 station; however, it did take approximately an hour to 2 hours for her to progress from 9-10 cm. She did push for approximately an hour and 45 minutes with the last 10-15 minutes requiring longer recovery times for fetus, at which time she did request to discuss plan of care as she was feeling extremely fatigued. I did present to discuss this during her pushing; however, I did note that longer recovery times were occurring with each contraction. Subsequently, there was a deceleration to the 80s, which did not improve despite maternal repositioning, oxygen, discontinuation of Pitocin, administration of terbutaline. Operative delivery was considered; however, upon rechecking head was still noted to only be +1 and maternal effort was not strong enough that operative delivery felt safe given the station maternal effort. After approximately 5 minutes of persistent decels to the 80s without improvement despite resuscitation, stat section was called. Anesthesia and pediatrics were made aware. The patient was verbally consented for an emergent procedure. Antibiotics were ordered. The patient was taken to the operating room. PROCEDURE: Patient was taken to the operating room where monitoring was replaced while awaiting anesthesia. By anesthesia's arrival, it was noted that heart tones did improve. Again, heart tones were noted to improve; however, given the lack of significant progression during pushing as well as the increasing length of recovery time following each set of pushes a discussion was had with the patient regarding concern for fetus' tolerance of further pushing and recommended delivery. The patient was amenable to this plan. She was again verbally consented. Time-out was then performed. She was prepped and draped in the usual sterile fashion. Epidural anesthesia was bolused. However, adequate surgical levels could not be obtained and so general endotracheal anesthesia was then obtained by anesthesia. A Pfannenstiel skin incision was then performed and carried down to the underlying fascia with a knife. Fascia was then nicked in the midline and extended laterally with pickups and Martinez scissors. The superior portion of the fascia was grasped with Kochers x2 and elevated off the underlying rectus muscles using blunt dissection and Martinez scissors. Inferior portion of the fascia was then grasped with Kochers x2 and also elevated off the underlying muscles with blunt dissection. Midline was and peritoneum was entered bluntly, which was then extended to provide adequate room for delivery of baby. Hand was inserted into the abdomen. The uterus was noted to be clear of adhesions. Bladder blade was inserted. A low transverse uterine incision was then made in the uterus and extended bluntly in a superior and inferior fashion. Meconium fluid was noted at time of hysterotomy. head was grasped and elevated through the hysterotomy in atraumatic fashion with the baby delivering in OP position. There was no nuchal cord. Remainder of body delivered without incident. Nose and mouth were bulb suctioned in surgical field. Delayed cord clamping was performed for 30 seconds. Cord was double clamped and cut. Baby was handed off to an awaiting pediatrics. Cord segment and blood were obtained. Placenta was then expressed from the uterus. Uterus was exteriorized. Several passes were made inside the uterus to remove remaining membranes. Attention was then turned to the hysterotomy, which was then closed with a running locked suture of 0 Vicryl on a CTX needle and imbricating layer was then performed using 0 Monocryl. There was noted to be persistent bogginess of the uterus despite oxytocin and so 0.2mg of Methergine was ordered and given by anesthesia. This did improve uterine tone. The posterior cul-de-sac was inspected and cleaned of all clot and debris. Hysterotomy was again inspected and noted to be hemostatic. Uterus returned to the abdomen. Right and left pericolic gutters were cleaned of all clot and debris. Hysterotomy was again noted to be hemostatic. Red was applied to the hysterotomy. Space of Retzius was noted to be hemostatic. Fascia was then closed with a running suture of 0 Vicryl and a CT1 needle. Subcutaneous tissue was copiously irrigated and noted to be hemostatic. Subcutaneous tissue was reapproximated using 2-0 plain gut in 2 layers. Skin was then closed with a running suture of 3-0 Monocryl in a subcuticular fashion. At termination of the procedure fundal pressure was applied and a moderate amount of lochia was expressed. Pressure dressing was applied. Patient tolerated the procedure well. All sponge, needle and instrument counts were correct x2 at the end of the procedure. I attest to the content of the Intraoperative Record and any orders documented therein. Any exceptions are noted below. MTDD
--- NOTE | 2020-09-27 09:03 | Anesthesiology Progress Note ---
Date of Service September 27, 2020 Anesthesia Post Procedure Vital Signs Vital Signs: Temp Pulse Pulse Resp BP BP Pulse Ox 09/27/20 06:30 36.7 C 82 18 117/75 95 09/27/20 05:30 36.9 C 84 18 121/72 98 09/27/20 05:11 81 97 09/27/20 05:06 79 97 09/27/20 05:01 84 97 09/27/20 04:56 80 97 09/27/20 04:51 74 97 09/27/20 04:46 36.5 C 84 18 118/64 97 09/27/20 04:41 85 97 09/27/20 04:36 81 97 09/27/20 04:31 85 98 09/27/20 04:26 85 100 09/27/20 04:21 82 99 09/27/20 04:16 79 112/60 99 09/27/20 04:15 36.5 C 81 18 112/60 99 09/27/20 04:11 93 H 99 09/27/20 04:08 88 112/61 09/27/20 04:06 83 100 09/27/20 04:01 78 100 09/27/20 03:56 85 100 09/27/20 03:53 84 112/59 L 09/27/20 03:51 84 99 09/27/20 03:46 86 99 09/27/20 03:41 99 H 99 09/27/20 03:38 93 H 105/58 L 09/27/20 03:36 92 H 99 09/27/20 03:35 93 H 90 09/27/20 03:31 98 H 100 09/27/20 03:30 36.5 C 94 H 18 99 09/27/20 03:26 94 H 99 09/27/20 03:23 98 H 110/57 L 09/27/20 03:21 98 H 100 09/27/20 03:20 105 H 94 09/27/20 03:16 104 H 99 09/27/20 03:11 97 H 121/59 L 99 09/27/20 03:07 88 115/61 09/27/20 03:06 86 99 09/27/20 03:02 91 H 116/61 09/27/20 03:01 92 H 99 09/27/20 03:00 36.5 C 91 H 18 116/61 99 09/27/20 02:59 96 H 94 09/27/20 02:57 96 H 109/57 L 09/27/20 02:56 97 H 98 09/27/20 02:52 90 109/60 09/27/20 02:51 94 H 97 09/27/20 02:47 101 H 103/51 L 09/27/20 02:46 103 H 99/59 L 95 09/27/20 02:45 100 H 110/61 09/27/20 02:43 36.5 C 100 H 16 110/61 94 09/27/20 00:43 107 H 100 09/27/20 00:38 101 H 99 09/27/20 00:34 89 84 L 09/27/20 00:33 85 99 09/27/20 00:28 92 H 94 09/27/20 00:27 97 H 93 09/27/20 00:23 75 99 09/27/20 00:20 82 85 L 09/27/20 00:18 74 99 09/27/20 00:13 98 H 98 09/27/20 00:12 99 H 92 09/27/20 00:08 86 131/74 96 09/27/20 00:05 75 88 L 09/27/20 00:03 97 H 98 09/26/20 23:59 83 88 L 09/26/20 23:58 79 98 09/26/20 23:53 79 98 09/26/20 23:51 86 79 L 09/26/20 23:48 99 H 98 09/26/20 23:45 91 H 90 09/26/20 23:43 107 H 98 09/26/20 23:38 36.7 C 85 18 131/62 98 09/26/20 23:36 84 88 L 09/26/20 23:33 92 H 98 09/26/20 23:30 101 H 91 09/26/20 23:28 105 H 97 09/26/20 23:23 77 97 09/26/20 23:18 104 H 98 09/26/20 23:15 107 H 91 09/26/20 23:13 74 99 09/26/20 23:08 106 H 99 09/26/20 23:04 20 09/26/20 23:03 80 99 09/26/20 23:00 95 H 92 09/26/20 22:58 100 H 98 09/26/20 22:53 76 99 09/26/20 22:48 80 100 09/26/20 22:43 75 99 09/26/20 22:42 70 134/62 09/26/20 22:40 97 H 92 09/26/20 22:39 37.0 C 20 09/26/20 22:38 73 97 09/26/20 22:33 75 99 09/26/20 22:28 80 99 09/26/20 22:23 79 100 09/26/20 22:19 98 H 92 09/26/20 22:18 78 96 09/26/20 22:13 75 97 09/26/20 22:08 83 98 09/26/20 22:04 86 92 09/26/20 22:03 75 100 09/26/20 21:58 76 94 09/26/20 21:55 74 133/64 09/26/20 21:54 18 09/26/20 21:53 80 98 09/26/20 21:48 76 98 09/26/20 21:43 87 100 09/26/20 21:38 73 100 09/26/20 21:33 81 100 09/26/20 21:28 87 99 09/26/20 21:23 111 H 99 09/26/20 21:18 102 H 100 09/26/20 21:16 82 89 L 09/26/20 21:13 80 99 09/26/20 21:10 82 89 L 09/26/20 21:08 97 H 99 09/26/20 21:03 78 98 09/26/20 20:58 70 100 09/26/20 20:53 70 98 09/26/20 20:52 36.7 C 18 09/26/20 20:48 71 98 09/26/20 20:46 81 129/66 09/26/20 20:43 85 100 09/26/20 20:40 88 93 09/26/20 20:38 72 98 09/26/20 20:34 78 93 09/26/20 20:33 77 94 09/26/20 20:28 74 97 09/26/20 20:27 71 92 09/26/20 20:23 70 100 09/26/20 20:21 74 93 09/26/20 20:18 78 96 09/26/20 20:13 80 100 10/29/20 20:08 81 99 09/26/20 20:07 87 93 09/26/20 20:03 78 100 09/26/20 19:58 82 100 09/26/20 19:56 66 91 09/26/20 19:53 76 99 09/26/20 19:52 88 142/65 H 09/26/20 19:50 77 94 09/26/20 19:48 81 99 09/26/20 19:44 79 92 09/26/20 19:43 77 95 09/26/20 19:38 84 98 09/26/20 19:36 83 145/68 H 09/26/20 19:33 78 99 09/26/20 19:28 83 100 09/26/20 19:26 80 94 09/26/20 19:23 79 99 09/26/20 19:18 82 100 09/26/20 19:15 81 93 09/26/20 19:13 84 100 09/26/20 19:08 85 20 99 09/26/20 19:03 80 96 09/26/20 18:58 76 99 09/26/20 18:53 80 100 09/26/20 18:52 90 138/74 09/26/20 18:50 77 138/71 09/26/20 18:48 77 99 09/26/20 18:43 77 100 09/26/20 18:38 78 100 09/26/20 18:36 75 135/67 09/26/20 18:33 77 99 09/26/20 18:28 80 99 09/26/20 18:23 74 100 09/26/20 18:21 77 129/61 09/26/20 18:18 80 100 09/26/20 18:13 76 97 09/26/20 18:08 73 133/63 100 09/26/20 18:03 76 99 09/26/20 17:58 86 100 09/26/20 17:53 74 100 09/26/20 17:51 75 138/69 09/26/20 17:48 75 100 09/26/20 17:43 75 98 09/26/20 17:38 80 100 09/26/20 17:37 72 150/71 H 09/26/20 17:33 94 H 100 09/26/20 17:28 72 100 09/26/20 17:23 79 99 09/26/20 17:22 81 125/67 09/26/20 17:18 79 100 09/26/20 17:13 74 100 09/26/20 17:08 81 100 09/26/20 17:03 81 100 09/26/20 16:58 74 100 09/26/20 16:57 37.0 C 09/26/20 16:53 78 100 09/26/20 16:52 70 118/60 09/26/20 16:48 69 100 09/26/20 16:43 75 100 09/26/20 16:38 79 99 09/26/20 16:37 72 106/61 09/26/20 16:33 81 99 09/26/20 16:28 74 100 09/26/20 16:23 66 100 09/26/20 16:21 67 95/56 L 09/26/20 16:18 67 100 09/26/20 16:13 66 100 09/26/20 16:08 85 100 09/26/20 16:06 69 92/53 L 09/26/20 16:03 72 100 09/26/20 15:58 68 100 09/26/20 15:53 60 100 09/26/20 15:51 64 93/55 L 09/26/20 15:48 62 100 09/26/20 15:43 70 100 09/26/20 15:38 70 100 09/26/20 15:36 67 99/57 L 09/26/20 15:33 64 100 09/26/20 15:28 59 L 100 09/26/20 15:23 73 100 09/26/20 15:22 64 104/55 L 09/26/20 15:18 75 99 09/26/20 15:13 71 100 09/26/20 15:08 62 100 09/26/20 15:07 63 119/62 09/26/20 15:03 36.7 C 69 18 109/67 99 09/26/20 14:58 69 100 09/26/20 14:53 61 99 09/26/20 14:51 59 L 107/63 09/26/20 14:48 59 L 100 09/26/20 14:43 58 L 100 09/26/20 14:38 61 100 09/26/20 14:37 57 L 117/62 09/26/20 14:33 74 100 09/26/20 14:28 95 H 100 09/26/20 14:23 72 101/56 L 100 09/26/20 14:18 74 100 09/26/20 14:13 62 99 09/26/20 14:08 73 100 09/26/20 14:07 63 102/58 L 09/26/20 14:03 63 100 09/26/20 14:00 36.7 C 18 09/26/20 13:58 66 100 09/26/20 13:53 77 101/57 L 97 09/26/20 13:48 68 95/60 L 99 09/26/20 13:43 66 100 09/26/20 13:38 75 99 09/26/20 13:37 79 86/51 L 09/26/20 13:33 76 98 09/26/20 13:28 78 99 09/26/20 13:23 84 99 09/26/20 13:22 84 98/56 L 09/26/20 13:18 76 98 09/26/20 13:13 80 98 09/26/20 13:08 84 99 09/26/20 13:03 86 99 09/26/20 13:00 36.7 C 20 09/26/20 12:58 80 99 09/26/20 12:53 78 103/56 L 100 09/26/20 12:50 79 107/60 09/26/20 12:48 82 100/56 L 99 09/26/20 12:46 78 108/57 L 09/26/20 12:44 85 107/55 L 09/26/20 12:43 84 99 09/26/20 12:42 80 107/62 09/26/20 12:40 87 103/53 L 09/26/20 12:38 89 96/54 L 100 09/26/20 12:36 92 H 106/53 L 09/26/20 12:34 90 114/59 L 09/26/20 12:33 104 H 100 09/26/20 12:32 97 H 115/55 L 09/26/20 12:31 96 H 115/55 L 09/26/20 12:28 69 100 09/26/20 12:23 92 H 100 09/26/20 12:18 119 H 100 10/29/20 12:13 84 100 09/26/20 11:45 36.5 C 22 09/26/20 11:14 76 118/64 Pain Intensity Abdomen: Pain Intensity: 2 Transfer of Care Handoff Completed per policy Notes Mental Status: alert / awake / arousable Patient Amnestic to Procedure: Yes Nausea / Vomiting: adequately controlled Pain: adequately controlled Airway Patency, RR, SpO2: stable & adequate BP & HR: stable & adequate Hydration State: stable & adequate Neuraxial Anesthesia: was administered and sensory block resolved Anesthetic Complications: no major complications apparent and Pt Satisfied with anesthetic care
[2020-09-27] MEDS: LACTATED RINGER'S 1,000 ML IV PRN (12:34)
[2020-09-27] MEDS ORDERED: HYDROmorphone HCL 0.5MG/ML 50 ML CASSETTE IV PRN (13:46)
[2020-09-27] MEDS ORDERED: DC PCA 1 EA DEVI ONE (13:47)
[2020-09-27] MEDS: IBUPROFEN 600 MG TAB PO PRN ×2 (18:34→23:13)
[2020-09-27] MEDS: oxyCODONE/ACETAMINOPHEN 5mg/325mg TAB PO PRN ×2 (18:35→23:13)
[2020-09-28] MEDS: oxyCODONE/ACETAMINOPHEN 5mg/325mg TAB PO PRN ×5 (04:08→22:01)
[2020-09-28] MEDS: IBUPROFEN 600 MG TAB PO PRN ×5 (04:09→22:00)
--- NOTE | 2020-09-28 06:36 | Obstetrical Progress Note ---
Date of Service <Montez Dick MD - Last Filed: 09/28/20 07:05> September 28, 2020 Assessment & Plan <Montez Dick MD - Last Filed: 09/28/20 07:05> (1) : - PNL: Rh pos, RI, GBS neg, COVID neg - Feels well today. Eating well, voiding well, ambulating well - Pain well controlled with ibuprofen 600mg Q4H PRN - Routine postoperative care -- OOB, ambulation, diet progression as tolerated - After discharge will have 6 week follow-up with Dr. Sharona Roman #:: 1 Subjective <Montez Dikc MD - Last Filed: 09/28/20 07:05> Rishi is a 25 y/o female who is POD #1 following emergency delivery at 40 5/7 weeks due to maternal exhaustion and FHR decelerations during labor. She reports feeling well overall this morning. Light abdominal cramping and 3/10 pain well managed on analgesics. Voiding well. Tolerating meals overnight without difficulty. Patient has been able to ambulate some. Is passing gas, no bowel movement yet. Has persistent lochia with some improvement this morning. Currently . Review of Systems Denies fever or chills. Denies shortness of breath or cough. Denies chest pain. Denies breast pain. Denies dysuria. Denies leg pain or leg swelling. Denies headache or changes in vision. Physical Exam <Montez Dick MD - Last Filed: 09/28/20 07:05> General: Alert, oriented. No acute distress. Cardiac: Regular rate and rhythm. No murmurs. Respiratory: Clear to auscultation bilaterally a/p, no wheezes/rales/rhonchi. No increased work of breathing. Symmetrical chest rise. No respiratory distress. Abdomen: Soft, nontender, nondistended. Bowel sounds present. Uterus: Uterine fundus firm, palpable 2 cm below umbilicus. Surgical scar clean and healing well. Lower Extremities: No lower extremity edema or swelling. No deep calf pain. Michelle's negative bilaterally. Results & Data ([facility]) <Montez Dick MD - Last Filed: 09/28/20 07:05> Vital Signs (Past 12 Hours) Vital Signs Temp Pulse Resp BP 09/27/20 23:05 36.5 C 91 H 18 101/69 09/27/20 19:30 36.8 C 98 H 18 97/61 L <Annabel Rodriguez DO - Last Filed: 09/28/20 07:52> Co-Signing Physician Notes Resident Physician Supervision Note: I was present with Dr. Campa during the history and exam. I discussed the case with the resident and agree with the findings and plan as documented in the note. Any exceptions or clarifications are listed here: POD#1 doing well. Ambulate, PO hydration. Continue PP care. Documented By: Annabel Rodriguez DO Resident Activity Tracking <Montez Dick MD - Last Filed: 09/28/20 07:05> Resident Involvement: Resident Care Provided Care Provided: OB Delivery
[2020-09-28 06:42] LABS: Hemoglobin 7.9 g/dL (12.0-16.0); Mean Corpuscular Hemoglobin 32.2 pg (25-34); Mean Corpuscular Hgb Conc 32.9 g/dL (32-36); Mean Platelet Volume 9.8 fL (7.4-10.4); Platelet Count 146 K/uL (130-400); RDW Coefficient of Variation 13.3 % (11.5-14.5); RDW Standard Deviation 47.4 fL (36.4-46.3); Red Blood Count 2.45 M/uL (4.2-5.4); White Blood Count 12.43 K/uL (4.8-10.8)
[2020-09-28 07:24] LABS: Basophils # (auto) 0.03 K/uL (0-0.2); Basophils % (auto) 0.2 %; Eosinophils # (auto) 0.03 K/uL (0-0.5); Eosinophils % (auto) 0.2 %; Immature Granulocytes # (auto) 0.02 K/uL (0.00-0.02); Immature Granulocytes % (auto) 0.2 %; Lymphocytes # (auto) 1.22 K/uL (1.2-3.4); Lymphocytes % (auto) 9.8 %; Monocytes # (auto) 0.69 K/uL (0.11-0.59); Monocytes % (auto) 5.6 %; Neutrophils # (auto) 10.44 K/uL (1.4-6.5); RBC Morphology Unremarkable
[2020-09-28] MEDS: SIMETHICONE 80 MG CHEW PO SCH ×4 (08:11→20:47)
[2020-09-28] MEDS: PRENATAL VITAMIN 1 TAB PO SCH (08:11)
[2020-09-28] MEDS: FERROUS SULFATE 325 MG TAB PO SCH (08:11)
[2020-09-28] MEDS: DOCUSATE SODIUM 100 MG CAP PO SCH ×2 (08:11→20:47)
[2020-09-28] MEDS ORDERED: bisacodyL 5 MG TABEC PO SCH (20:00)
[2020-09-29] MEDS: oxyCODONE/ACETAMINOPHEN 5mg/325mg TAB PO PRN ×5 (01:35→23:07)
[2020-09-29] MEDS: IBUPROFEN 600 MG TAB PO PRN ×5 (01:36→23:08)
[2020-09-29] MEDS ORDERED: bisacodyL 10 MG SUPP PR PRN (02:44)
[2020-09-29 06:24] LABS: Hematocrit (blood only) 23.1 % (37-47); Hemoglobin 7.9 g/dL (12.0-16.0)
[2020-09-29] MEDS: SIMETHICONE 80 MG CHEW PO SCH ×4 (08:00→20:28)
[2020-09-29] MEDS: PRENATAL VITAMIN 1 TAB PO SCH (08:00)
[2020-09-29] MEDS: FERROUS SULFATE 325 MG TAB PO SCH (08:00)
[2020-09-29] MEDS: DOCUSATE SODIUM 100 MG CAP PO SCH ×2 (08:00→20:28)
--- NOTE | 2020-09-29 14:32 | Obstetrical Progress Note ---
Date of Service September 29, 2020 Assessment & Plan (1) state: Patient POD#2 and wishes to stay through POD#3. Exam of upper outer thighs, where concern of "firm" areas were raised last night by nurse, showed no abnormality this morning. Patient was not having any complaints about this. My best guess is that edema was settling in the area just above / beyond the SCD's which end mid-thigh, which is also dependent as the patient is sitting with the bed folded up. Subjective Ambulation: ambulating normally Voiding: no voiding problems Passing Gas:: Yes Diet Tolerance:: regular diet Lochia:: Small Feeding Type:: breast feeding Note this document is delayed; patient actually seen at 0730 this morning. Physical Exam Constitutional WD/WN, vitals as above Eyes PERRL, conjunctivae normal, anicteric sclerae Neck normal visual inspection Respiratory normal respiratory effort and able to speak in complete sentences; no respiratory distress and no labored breathing Cardiovascular Rate/Rhythm: regular rate and regular rhythm Extremities: no edema Chest (Breasts) Chest: normal inspection of chest Gastrointestinal (Abdomen) Inspection/Auscultation: + abdominal surgical incision (Patient had baby over chest/belly; reports incision looks "good.") not awakened to allow abdominal exam. Will accept RN reports and patient statement that incision dressing was removed yesterday and looks fine today. Psychiatric A+Ox3, euthymic affect Genitourinary OB Exam Abdomen: + fundal height Fundus: + firm and + relation to umbilicus (fundus just below umbilicus); not tender Results & Data ([facility]) Vital Signs (Past 12 Hours) Vital Signs Temp Pulse Resp BP Pulse Ox 09/29/20 08:20 98.4 F 67 18 119/71 99
[2020-09-30] MEDS: IBUPROFEN 600 MG TAB PO PRN ×2 (05:17→09:38)
[2020-09-30] MEDS: oxyCODONE/ACETAMINOPHEN 5mg/325mg TAB PO PRN ×2 (05:18→09:37)
--- NOTE | 2020-09-30 05:54 | Obstetrical Progress Note ---
Date of Service <Faith Rangel DO - Last Filed: 09/30/20 06:26> September 30, 2020 Assessment & Plan <Faith Rangel DO - Last Filed: 09/30/20 06:26> (1) state: - POD #3 - PNL: Rh pos, RI, GBS neg, COVID neg - Hgb 7.9 yesterday; continue ferrous sulfate 325mg po daily - Feels well today. Eating well, voiding well, ambulating well. - Pain well controlled with ibuprofen 600mg Q4H PRN - Routine care -- OOB, ambulation, diet progression as tolerated - After discharge will have 6 week follow-up with Dr. Tabor. - Plan for d/c home today. Subjective <Faith Rangel DO - Last Filed: 09/30/20 06:26> Rishi Dos Santos is a 25 y/o female who is POD #3 following emergent delivery due to NRFHT during 2nd stage of labor at 40 6/7 weeks. She reports feeling well overall this morning. Some abdominal cramping and 4/10 pain well managed on analgesics. She also reports some generalized diffuse muscle "achiness" throughout her body, which she attributes to pushing prior to c- section delivery. She is voiding without dysuria. Tolerating meals overnight without difficulty, nausea, or vomiting. Patient has been able to ambulate some. She is passing gas but has not yet had a bowel movement. Has persistent lochia with much improvement this morning; reports only using 2-3 pads daily and not soaking these pads. Currently and supplementing with formula. Review of Systems Denies fever or chills. Denies shortness of breath or cough. Denies chest pain. Denies breast pain. Denies dysuria. Denies leg pain or leg swelling. Denies headache. Physical Exam <Faith Rangel DO - Last Filed: 09/30/20 06:26> General: Alert, oriented. No acute distress. Cardiac: Regular rate and rhythm. No murmurs. Respiratory: Clear to auscultation bilaterally a/p, no wheezes/rales/rhonchi. No increased work of breathing. Symmetrical chest rise. No respiratory distress. Abdomen: Soft, nontender, nondistended. Bowel sounds present. Uterus: Uterine fundus firm, palpable 1 cm below umbilicus. Surgical scar clean and healing well. Lower Extremities: No lower extremity edema or swelling. No deep calf pain. Michelle's negative bilaterally. Results & Data ([facility]) <Faith Rangel DO - Last Filed: 09/30/20 06:26> Vital Signs (Past 12 Hours) Vital Signs Temp Pulse Resp BP Pulse Ox 09/29/20 23:00 36.7 C 71 18 97/60 L 99 09/29/20 19:30 37.0 C 85 18 108/66 98 <Thelma Anne MD - Last Filed: 09/30/20 07:02> Co-Signing Physician Notes I have reviewed the resident's note and examined the patient myself, and agree with the note above.
[2020-09-30] MEDS: DOCUSATE SODIUM 100 MG CAP PO SCH (07:42)
[2020-09-30] MEDS: SIMETHICONE 80 MG CHEW PO SCH (07:42)
[2020-09-30] MEDS: PRENATAL VITAMIN 1 TAB PO SCH (07:42)
[2020-09-30] MEDS: FERROUS SULFATE 325 MG TAB PO SCH (07:42)
--- NOTE | 2020-10-01 07:20 | Discharge Summary ---
Date of Service October 01, 2020 Admission HPI Per Admitting Provider 25 yo white female EDC 09/21/20 who presents for continuation of induction of labor for postterm . She had a cervical balloon successfully placed last evening. she had mild contractions overnight but did not feel the balloon had fallen out. no blood show or SPROM. baby active. GBS negative- Blood Type A positive. has otherwise been uncomplicated Admission Exam (Per Admitting) Constitutional WD/WN, vitals as above no acute distress Respiratory normal respiratory effort, lungs clear to auscultation Cardiovascular RRR, no murmur, no edema Gastrointestinal (Abdomen) Percussion/Palpation: abdomen soft; abdomen nontender and no guarding Psychiatric A+Ox3, euthymic affect Genitourinary OB Exam Abdomen: + regular contractions (q3-5min) Manual OB Exam: + cervical dilation + 5 cm, + cervical effacement + 100% and + station + -1 OB Exam Monitor Tracing: + external FHT monitor used, + external uterine monitor used and + category I cervical balloon was expelled and sitting in the vagina. it was easily removed from the vagina after removing the water from the balloon. Discharge Data Consultations 09/26/20 07:40 Consult Anesthesiology Stat Procedures Performed Operation Date: 09/27/20 00:45 Actual Procedures p Primary Section in LD for the of a viable female child at 0120. - Noris Tabor MD Hospital Course (1) state: Induction was begun with wagoner bulb the night prior to admission. Wagoner bulb was expulsed, pt presented and was 5/100/-1. Oxytocin was initiated per protocol. She received an epidural for pain control. Underwent AROM for further augmentation. She did reach complete after protracted labor and began pushing.. Pt had been pushing approx 1hr and 45 minutes, longer recovery from each contraction noted. Some progress but not significant. Pt desired to discuss plan of care with myself due to maternal exhaustion. I presented to room and discussed plan while pt was pushing. At this time, fetus was noted to decel to 80s. Did not improve with repositioning, O2, pit discontinuation, and terbutaline. After decel in 80s for 5 minutes, stat was called. Operative delivery was considered however station was felt to be too high for vacuum and prior leopolds were concerning for larger baby. Pt was verbally consented for emergent procedure. Anesthesia and peds made aware. Upon arriving to OR, pt was placed back on monitor while awaiting anesthesia and heart tones had improved. However, given NRFHT, station, and maternal fatigue, decision was made to proceed with delivery via CS. See operative report for details. Postop course was uncomplicated, though pt did have some muscle aches due to pushing. She was then discharged home on POD3 Coding Level of Care Code None Diagnoses state Z39.2
== END 2020-09-30 11:10 | disposition home or self-care (01) | DRG 788 ==
LOC: 4S1 07:30 → 4S2 09-27 05:45

== ENCOUNTER 2024-01-10 07:00 | Inpatient (IN) ==
--- NOTE | 2023-12-28 11:10 | History & Physical Report ---
Date of Service December 28, 2023 Assessment & Plan (1) Previous delivery affecting , antepartum: (2) Encounter for supervision of normal in multigravida: Plan Discussed indications, risks, benefits, alternatives with risks including infection, bleeding, injury to adjacent structures (bowel, bladder, ureters, blood vessels, nerves, baby), possible need for blood transfusion and/or life saving hysterectomy, VTE. Consent reviewed in detail w/ pt and signed after all questions answered to her satisfaction. Has tolerated keflex before so plan ancef for antibiotics History of Present Illness Chief Complaint: pre-op Primary Care Provider: RUBIO Mathias 28 yo presents for preop to planned repeat CS at 39 2/7 wga. 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 Hx: G1 2019 CS G2 2021 MAB, molar G3 current FOB w/ hx hsv, pt denies hx Allergies Allergy/AdvReac Type Severity Reaction Status Date / Time Penicillins Allergy Hives Verified 12/28/23 10:52 Home Medications Medication Instructions Recorded Confirmed Type cetirizine 10 mg tablet (Zyrtec) 10 mg PO DAILY PRN Allergy Symptoms 11/05/22 12/28/23 History docosahexaenoic acid [ DHA] PO 04/22/23 12/28/23 History docusate sodium [Colace] PO 04/22/23 12/28/23 History Patient History Medical History Encounter for induction of labor GERD (gastroesophageal reflux disease) Molar Obesity Surgical History History of surgery on arm S/P S/P dilation and curettage S/P tonsillectomy Status post wisdom tooth extraction Family History Aunt Colorectal cancer Father Alcohol abuse Mother Hypertension Thyroid disease Grandmother (Maternal) Bone cancer Other Anemia Anxiety Depression Diabetes Drinking problem Dyslipidemia Gestational diabetes Heart disease Kidney disease No family history of adverse response to anesthesia Premature labor Twin Denies family history of Ovarian cancer Prostate cancer Myocardial infarction Breast cancer Uterine cancer Social History Smoking Status: Never smoker Second Hand Exposure: No; Do You Dip or Chew Tobacco: No; Hx Alcohol Use: No Hx Substance Use: No Preferred Language: Bulgarian Communication Ability: Effective Visual Impairment: No Limitations Hearing Ability: Normal Assistant Golf Course Superintendent Required: No Beliefs That Will Affect Care: None marital status: marital status details: Juan R Dos Santos (33) [phone] Current Living Situation: Spouse and Family Current Living Situation Comment: lives with spouse, child, cat ( spouse changing litter) current occupational status: employed 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 How many Children do You have: 1 Feels Safe at Home: Yes Childhood Exposure to Second-Hand Smoke: No Diet: regular caffeine: Yes during the past year weight has: remained stable Dental Care, Regularly: Yes Physical Activity Frequency: 1-2 Times per Week Seatbelt Use: always Sunscreen Use: Yes Assistive Devices: Glasses Physical Exam Respiratory: normal respiratory effort, lungs clear to auscultation Cardiovascular: RRR, no murmur, no edema Genitourinary: OB Exam Abdomen: + fundal height (37), + heart tones (140s) and + vertex Results & Data Laboratory Results OB Labs: Blood Type A Positive 10/09/22 Antibody Screen NEGATIVE 10/09/22 Hemoglobin 12.7 g/dl (12.0-16.0) 10/28/23 Hematocrit 36.3 % (37.0-47.0) L 10/28/23 Mean Corpuscular Volume 94.6 fL (80.0-100.0) 06/08/23 Platelet Count 208 Thousand/uL (140-400) 06/08/23 Rubella IgG Antibody 2.19 Index 06/08/23 Rapid Plasma Reagin NON-REACTIVE (NON-REACTIVE) 06/08/23 Hepatitis B Surface Antigen Neg (Neg) 02/26/20 Hepatitis B Surface Antigen. NON-REACTIVE (NON-REACTIVE) 06/08/23 Hepatitis C Antibody (EIA) NON-REACTIVE (NON-REACTIVE) 06/08/23 HIV (1&2) Ab and P24 Ag, 4th Gener Neg (Neg) 02/26/20 HIV (1&2) Ag and Ab Confirmation NON-REACTIVE (NON-REACTIVE) 06/08/23 Glucose 1 Hour 50 gm Load 105 mg/dl (70-130) 10/28/23 Maternal Serum Alpha Fetoprotein 38.2 ng/mL 04/15/20 OB Optional Labs: Chlamydia trachomatis RNA Not Detected (NotDetected) 06/08/23 Neisseria gonorrhoeae RNA Not Detected (NotDetected) 06/08/23 Alpha Fetoprotein Triple Screen SEE NOTE 04/15/20 GBS+ Diagnostic Findings Posterior placenta Coding Level of Care Code None Diagnoses Previous delivery affecting , antepartum O34.219 Encounter for supervision of normal in multigravida Z34.80
--- NOTE | 2023-12-31 11:32 | Anesthesiology Consultation ---
Date of Service December 31, 2023 Assessment & Plan (1) Encounter for pre-operative examination: - Per wreath inspector on 12/31/23: No known infectious disease contacts, current infectious disease symptoms in past 10 days or COVID positive test result in the past 30 days. Chart Review Chart Review: entry writer initiated History Surgery Operation Date: 01/10/24 08:50 Proposed Procedures p Section (Delivery of Baby Through Abdominal Incision) - Noris Tabor MD Height/Weight Height: 5 ft 3 in Weight: 97.976 kg Allergies Allergy/AdvReac Type Severity Reaction Status Date / Time Penicillins Allergy Unknown Hives/child Verified 12/31/23 11:02 braxton. adhesive AdvReac Unknown left ramirez Verified 12/31/23 11:02 on my skin with adhesive from prior c/s. Medications Home Medications Medication Instructions Recorded Confirmed Last Taken cetirizine 10 mg tablet (Zyrtec) 10 mg PO DAILY PRN Allergy Symptoms 11/05/22 12/31/23 11/03/22 20:00 calcium carbonate 200 mg calcium 200 mg PO UD PRN Acid Reflux 12/31/23 12/31/23 Unknown (500 mg) chewable tablet (Tums) docusate sodium 50 mg capsule 200 mg PO DAILY 12/31/23 12/31/23 Unknown vit no.95-ferrous 1 tab PO DAILY 12/31/23 12/31/23 Unknown fumarate 28 mg-folic acid 800 mcg tablet () Past Medical History Medical History Family history of reaction to anesthesia mother - sometimes harder to wake up. GERD (gastroesophageal reflux disease) History of high cholesterol hx elavated/most recent testing was not. Molar hx Past Family History Family History Aunt Colorectal cancer thinks mid 40s Father Alcohol abuse Mother Hypertension Thyroid disease Grandmother (Maternal) Bone cancer Other Anemia Anxiety Depression Diabetes Drinking problem Dyslipidemia Gestational diabetes Heart disease Kidney disease No family history of adverse response to anesthesia Premature labor Twin Denies family history of Ovarian cancer Prostate cancer Myocardial infarction Breast cancer Uterine cancer Past Surgical History Surgical History History of surgery on arm reset broken wrist. History of tonsillectomy and adenoidectomy S/P CSx1, NRFHT S/P dilation and curettage D&E, molar preg Status post wisdom tooth extraction Social History Smoking Status: Never smoker Do You Dip or Chew Tobacco: No alcohol intake frequency: holidays/special occasions only Hx Substance Use: No substance use type: does not use Substance Use Type Other:: not while
[~2024-01-10 07:00] MED LIST: ALLERGY Noted to ORDERED Medication SCH
[2024-01-10] MEDS: LACTATED RINGER'S 1,000 ML IV SCH ×2 (07:22→22:57)
[2024-01-10] MEDS ORDERED: OXYTOCIN 10 UNITS/ML VIAL ONE (08:27)
[2024-01-10] MEDS ORDERED: MoRPHine SULFATE PF 1 MG/ML 10 ML AMP/VIAL ONE (08:27)
[2024-01-10] MEDS ORDERED: PHENYLEPHRINE HCL 10 MG/ML VIAL ONE (08:27)
[2024-01-10] MEDS ORDERED: fentaNYL citrate PF 100 MCG/2 ML VIAL ONE (08:27)
[2024-01-10] MEDS ORDERED: NALOXONE HCL 0.4 MG/1 ML VIAL/CARP IV PRN (09:15)
[2024-01-10] MEDS ORDERED: NALBUPHINE HCL 5 MG in SYRINGE 0 ML IV PRN (09:15)
[2024-01-10] MEDS ORDERED: NALOXONE HCL 1 MG in SODIUM CHLORIDE 0.9% 1,000 ML IV PRN (09:15)
[2024-01-10] MEDS ORDERED: HYDROmorphone INJ 0.5 MG/0.5 ML SYR IV PRN (09:15)
[2024-01-10] MEDS ORDERED: NO NARCOTICS OR SEDATIVES SCH (09:15)
[2024-01-10] MEDS ORDERED: ePHEDrine sulfate 50 MG/ML AMP IV PRN (09:15)
[2024-01-10] MEDS ORDERED: LACTATED RINGER'S 500 ML IV PRN (09:15)
[2024-01-10] MEDS ORDERED: DC INTRASPINAL MORPHINE SCH (09:15)
[2024-01-10] MEDS ORDERED: diphenhydrAMINE 50 MG/ML VIAL IV PRN (09:15)
[2024-01-10] MEDS ORDERED: MoRPHine SULFATE 2 MG/ML CARP IV PRN (09:15)
[2024-01-10] MEDS ORDERED: NALOXONE HCL 0.08 MG in SYRINGE 1.8 ML IV PRN (09:15)
--- NOTE | 2024-01-10 09:17 | History & Physical Bridge Note ---
Date of Service January 10, 2024 History & Physical Bridge Note I have examined the patient, reviewed the History & Physical and in the interval since the performance of the History & Physical I have noted the following changes of clinical significance: no changes noted
[2024-01-10] MEDS: CITRIC ACID/SODIUM CITRATE 15 ML UDC PO SCH (09:31)
--- NOTE | 2024-01-10 12:36 | Post Operative Brief Note ---
PG Immediate Post Op with CF Date of Surgery January 10, 2024 Pre & Post Diagnosis Operation Date: 01/10/24 08:50 Pre-Op Diagnosis: 1. intrauterine at 39.2 weeks 2. history of section. desires repeat. Post-Op Diagnosis: 1. same 2. same I identified the patient and participated in the time-out.: Yes Procedure Operation Date: 01/10/24 08:50 Actual Procedures p Repeat Low Transverse Section in LD for a viable male at 1127(Not Applicable) - Noris Tabor MD Surgeon Noris Tabor MD Utility Bag Assembler MD Sowmya Estimated Blood Loss 500 Findings Consistent with Post-Op Diagnosis filmy bladder adhesions, otherwise normal appearing uterus, bilateral fallopian tubes and ovaries. Viable male weighing 7lbs 9oz, APGARs 9 and 9 at 1 and 5 minutes, respectively Fluids 2L crystalloid, UOP 200cc clear urine Specimens Specimen Description: 1. placenta- exam 2. cord blood Drains Wagoner Catheter (wagoner catheter inserted without difficulty. remains intact draining clear yellow urine throughout procedure) Anesthesia Type Spinal Complications none Disposition Accompanied Patient To Recovery: Yes Disposition: L&D
--- NOTE | 2024-01-10 12:37 | Operative Report ---
PG Post Operative Report Pre & Post Diagnosis Operation Date: 01/10/24 08:50 Pre-Op Diagnosis: 1. Intrauterine at 39.2 weeks 2. History of section x 1, desires repeat. Post-Op Diagnosis: 1. same 2. same I identified the patient and participated in the time-out.: Yes Procedure Operation Date: 01/10/24 08:50 Actual Procedures p Repeat Low Transverse Section in LD for a viable male infant at 1127(Not Applicable) - Noris Tabor MD Surgeon Noris Tabor MD Doctor Of Dental Medicine MD Sowmya Estimated Blood Loss 500 Findings Consistent with Post-Op Diagnosis filmy bladder adhesions, otherwise normal appearing uterus, bilateral fallopian tubes and ovaries. Viable male weighing 7lbs 9oz, APGARs 9 and 9 at 1 and 5 minutes, respectively Fluids 2L crystalloid, UOP 200cc clear urine Specimens 1. placenta- exam 2. cord blood Drains Pandya draining clear urine Anesthesia Type Spinal Complications none Disposition Accompanied Patient To Recovery: Yes Disposition: L&D Indications 28 yo at 39 2/7 wga presents for elective planned repeat CS Description of Procedure The patient was taken to the operating room after consents were ensured. The patient was properly identified. Spinal anesthesia was obtained without difficulty. The patient was placed in a dorsal supine position with left lateral tilt, then prepped and draped in normal sterile fashion. Surgical time out was performed. Ancef was given for prophylaxis and tolerated. Anesthesia was tested to ensure adequate surgical levels. Pfannenstiel skin incision was performed and carried down to the underlying fascia with a knife. The fascia was then nicked in the midline and extended laterally with pickups and Martinez scissors. Superior portion of the fascia was grasped with Kochers x2 and elevated off the underlying rectus muscles using blunt dissection. Inferior portion of the fascia was then grasped with Yamileth clamps x2 and also elevated off the underlying muscles with blunt dissection. Midline was identified. The peritoneum was then entered and extended to provide adequate room for delivery of baby. A hand was inserted into the abdomen, adhesions noted as above and dissected away from the uterus. Bladder blade was inserted, bladder flap was created in the usual fashion. A low transverse uterine incision was made in the uterus and extended bluntly in a superior to inferior fashion. Amniotomy was made with clear fluid at the time of rupture. head was grasped and elevated through the hysterotomy in an atraumatic fashion. The baby delivered in SHERI position, no nuchal cord. Remainder of the body delivered without incident. Nose and mouth were bulb suctioned on the surgical field. The cord was double clamped and cut, baby was handed off to awaiting pediatrics staff. Cord segment and blood were obtained. Placenta was then expressed from the uterus. The uterus was exteriorized. Several passes were made inside the uterus to remove the remaining membranes. Attention was then turned to the hysterotomy, which was then closed with a running locked suture of 0 Vicryl on a CTX needle. An imbricating layer was then performed using 0-Monocryl. There was noted to be good hemostasis. The posterior cul-de-sac was then inspected and cleaned of clot and debris. The hysterotomy was again inspected and noted to be hemostatic. The uterus was returned to the abdomen. The right and left pericolic gutters were cleaned of all clot and debris. The hysterotomy was again noted to be hemostatic. Space of Retzius was noted to be hemostatic. The fascia was then closed with a running suture of 0 Vicryl on a CT1 needle. Subcutaneous tissue was copiously irrigated and noted to be hemostatic. Subcutaneous tissue was re-approximated using 2-0 plain gut in two layers. The skin was then closed with a running suture of 3-0 Monocryl in a subcuticular fashion. At termination of the procedure, fundal pressure was applied and a moderate amount of lochia was expressed. Pressure dressing was applied to the patient. She tolerated the procedure well. All sponge, needle, instrument counts were correct x 2. I attest to the content of the Intraoperative Record and any orders documented therein. Any exceptions are noted below. OB Procedure Charges 14723
[2024-01-10] MEDS ORDERED: SENNA 8.6 MG TAB PO PRN (12:48)
[2024-01-10] MEDS ORDERED: MAGNESIUM HYDROXIDE SUSP 30 ML UDC PO PRN (12:48)
[2024-01-10] MEDS ORDERED: BENZOCAINE 20% SPRY 85 APPLN/85 GM CAN EXT PRN (12:48)
[2024-01-10] MEDS ORDERED: HYDROCORTISONE ACETATE 25 MG SUPP PR PRN (12:48)
[2024-01-10] MEDS: KETOROLAC 30 MG/ML VIAL IV PRN (12:52)
[2024-01-10] MEDS: ONDANSETRON INJ 2 MG/ML 2 ML VIAL IV PRN (13:59)
[2024-01-10] MEDS: OXYTOCIN 20 UNITS/LR 1,002 ML IV SCH (14:06)
--- NOTE | 2024-01-10 14:47 | Anesthesiology Progress Note ---
Date of Service January 10, 2024 Anesthesia Post Procedure Vital Signs Vital Signs: Temp Pulse Resp BP Pulse Ox 01/10/24 14:43 98 01/10/24 14:43 55 L 01/10/24 14:38 97 01/10/24 14:38 55 L 01/10/24 14:33 97 01/10/24 14:33 62 01/10/24 14:28 96 01/10/24 14:28 52 L 01/10/24 14:23 95 01/10/24 14:23 53 L 01/10/24 14:18 97 01/10/24 14:18 46 L 01/10/24 14:13 95 01/10/24 14:13 55 L 01/10/24 14:08 97 01/10/24 14:08 50 L 01/10/24 14:03 98 01/10/24 14:03 48 L 01/10/24 13:58 99 01/10/24 13:58 53 L 01/10/24 13:53 96 01/10/24 13:53 56 L 01/10/24 13:48 94 01/10/24 13:48 62 01/10/24 13:43 98 01/10/24 13:43 57 L 01/10/24 13:38 95 01/10/24 13:38 61 01/10/24 13:33 97 01/10/24 13:33 60 01/10/24 13:28 96 01/10/24 13:28 63 01/10/24 13:23 97 01/10/24 13:23 52 L 01/10/24 13:18 97 01/10/24 13:18 55 L 01/10/24 13:13 95 01/10/24 13:13 57 L 01/10/24 13:08 96 01/10/24 13:08 64 01/10/24 13:03 96 01/10/24 13:03 58 L 01/10/24 12:58 99 01/10/24 12:58 60 01/10/24 12:53 95 01/10/24 12:53 55 L 01/10/24 12:48 98 01/10/24 12:48 62 01/10/24 12:43 96 01/10/24 12:43 66 01/10/24 12:38 98 01/10/24 12:38 56 L 01/10/24 12:33 97 01/10/24 12:33 66 01/10/24 12:28 94 01/10/24 12:28 67 01/10/24 12:23 96 01/10/24 12:23 62 01/10/24 12:19 94 01/10/24 12:19 62 01/10/24 12:18 36.4 C L 01/10/24 12:18 96 01/10/24 12:18 61 01/10/24 12:18 67 01/10/24 12:18 109/59 L 01/10/24 07:41 37.0 C 80 22 103/64 01/10/24 07:08 37.0 C 80 22 103/64 Transfer of Care Handoff Completed per policy Notes Mental Status: alert / awake / arousable and participated in evaluation Patient Amnestic to Procedure: Yes Nausea / Vomiting: adequately controlled Pain: adequately controlled Airway Patency, RR, SpO2: stable & adequate BP & HR: stable & adequate Hydration State: stable & adequate Anesthetic Complications: no major complications apparent and Pt Satisfied with anesthetic care
[2024-01-10] MEDS: DIPHTHER/TETAN/PERTUS Vaccine (Tdap, Adol/Adult) 0.5mL IM ONE (15:23)
[2024-01-10] MEDS: SIMETHICONE 80 MG CHEW PO SCH (15:24)
[2024-01-10] MEDS: DOCUSATE SODIUM 100 MG CAP PO SCH (21:10)
[2024-01-11] MEDS ORDERED: diphenhydrAMINE Capsule 25 MG CAP PO PRN (03:15)
[2024-01-11] MEDS ORDERED: ONDANSETRON INJ 2 MG/ML 2 ML VIAL IV PRN (03:15)
[2024-01-11] MEDS ORDERED: PROMETHAZINE HCL 25 MG in SODIUM CHLORIDE 0.9% 50 ML IV PRN (03:15)
[2024-01-11] MEDS ORDERED: diphenhydrAMINE 50 MG/ML VIAL IV PRN (03:15)
[2024-01-11] MEDS ORDERED: oxyCODONE/ACETAMINOPHEN 5mg/325mg TAB PO PRN (03:15)
[2024-01-11] MEDS: SODIUM CHLORIDE 0.9% 1,000 ML IV SCH (04:34)
[2024-01-11] MEDS: MoRPHine SULFATE PF 1 MG/ML 10 ML AMP/VIAL INT SPINAL ONE (04:34)
[2024-01-11] MEDS: IBUPROFEN 600 MG TAB PO PRN (06:11)
[2024-01-11] MEDS ORDERED: ACETAMINOPHEN 325 MG TAB PO PRN (06:48)
[2024-01-11] MEDS ORDERED: oxyCODONE HCL IR 5 MG TAB (IMMEDIATE RELEASE) PO PRN (06:53)
[2024-01-11 06:57] LABS: Basophils # (auto) 0.06 K/uL (0.00-0.20); Basophils % (auto) 0.6 %; Eosinophils # (auto) 0.19 K/uL (0.00-0.50); Hemoglobin 11.9 g/dl (12.0-16.0); Immature Granulocytes # (auto) 0.05 K/uL (0.01-0.20); Immature Granulocytes % (auto) 0.5 %; Lymphocytes # (auto) 1.15 K/uL (1.20-3.40); Lymphocytes % (auto) 12.3 %; Mean Corpuscular Hemoglobin 32.8 pg (25.0-34.0); Mean Corpuscular Volume 93.7 fL (80.0-100.0); Mean Platelet Volume 10.3 fL (9.4-12.4); Monocytes # (auto) 0.47 K/uL (0.11-0.59); Neutrophils # (auto) 7.41 K/uL (1.40-6.50); Neutrophils % (auto) 79.6 %; Platelet Count 157 K/uL (130-400); RDW Coefficient of Variation 12.4 % (11.5-14.5); RDW Standard Deviation 42.8 fL (36.4-46.3); Red Blood Count 3.63 M/uL (4.20-5.40); White Blood Count 9.33 K/ul (4.8-10.8)
--- NOTE | 2024-01-11 07:19 | Obstetrical Progress Note ---
Date of Service January 11, 2024 Assessment & Plan (1) Carrier of group B Streptococcus: (2) Encounter for supervision of normal in multigravida: (3) Obesity: (4) Supervision of normal intrauterine in multigravida: (5) Previous delivery affecting , antepartum: Plan 30 yo post day 1 c section Vital signs reviewed Hgb pending Rubella immune Pain well controlled with ibuprofen Continue ambulation Encourage Admission and Anticipated Discharge Date Admission Date: January 10, 2024 Sudha Dos Santos is a 28 yo day 1 s/p C/S at 39.2 weeks without complication. The patient is ambulating. She has not voided stool or gas. She is on a regular diet. She denies lochia and rates her pain at a 3 out of 10 severity. Breast feeding with pump and bottle. Review of Systems Review of Systems: Resting comfortably this AM in NAD. She denies fevers, chills, SOB, cough, chest pain, heart palpitations, breast pain, discharge, UTI symptoms, or headaches. Physical Exam Physical Exam: General: patient resting comfortably, NAD, non-toxic in appearance, AA&O x 4, answers questions appropriately. Skin: warm, dry, intact Heart: regular RR no m/r/g Lungs: CTAB no rales/rhonchi/wheezes Abd: soft non-distended with normol active bowel sounds, normal drainage through wound dressing, no signs of infection Ext: warm, no clubbing/cyanosis or edema Neuro: nonfocal, patient AA&O x 4, speech intact, no facial droop, moving all extremities on command. Results & Data Vital Signs (Past 12 Hours) Vital Signs Temp Pulse Resp BP BP Pulse Ox O2 Del Method 01/11/24 02:45 36.8 C 70 18 86/62 L 100/68 97 Room Air 01/11/24 02:00 18 98 01/11/24 01:00 18 100 01/11/24 00:00 36.7 C 79 18 99/65 L 99 Room Air 01/10/24 22:55 20 194 H 01/10/24 21:55 20 96 01/10/24 20:55 20 100 01/10/24 20:55 36.7 C 61 20 104/68 100 Room Air 01/10/24 19:55 20 100 01/10/24 18:35 18 100 (3) Obesity Obesity classification: unspecified obesity classification Obesity type: unspecified obesity type Serious obesity comorbidity presence: unspecified whether serious comorbidity present Qualified Code(s): E66.9 - Obesity, unspecified (4) Supervision of normal intrauterine in multigravida Trimester: unspecified trimester Qualified Code(s): Z34.80 - Encounter for supervision of other normal , unspecified trimester
--- NOTE | 2024-01-11 07:47 | Labor Progress Brief Note ---
Date of Service January 11, 2024 Assessment & Plan (1) Encounter for care and examination after delivery: Plan: 28 yo POD 1from [facility], doing well -Meeting all pp milestones -Rh+/rubella immune/ -f/u 6 weeks for appt, cont rout care Admission and Anticipated Discharge Date Admission Date: January 10, 2024 Physical Exam Constitutional: WD/WN, vitals as above no acute distress Respiratory: normal respiratory effort, lungs clear to auscultation Cardiovascular: RRR, no murmur, no edema Gastrointestinal (Abdomen): Percussion/Palpation: abdomen soft; abdomen nontender fundus firm at umbilicus and NT, dressing c/d/i Musculoskeletal: BLE symmetric, nonerythematous, nontender Results & Data Vital Signs (Past 12 Hours) Vital Signs Temp Pulse Resp BP BP Pulse Ox O2 Del Method 01/11/24 02:45 98.2 F 70 18 86/62 L 100/68 97 Room Air 01/11/24 02:00 18 98 01/11/24 01:00 18 100 01/11/24 00:00 98.1 F 79 18 99/65 L 99 Room Air 01/10/24 22:55 20 194 H 01/10/24 21:55 20 96 01/10/24 20:55 20 100 01/10/24 20:55 98.1 F 61 20 104/68 100 Room Air 01/10/24 19:55 20 100 Coding Level of Care Code None Diagnoses Encounter for care and examination after delivery Z39.2
[2024-01-11] MEDS: FERROUS SULFATE 325 MG TAB PO SCH (08:43)
[2024-01-11] MEDS: PRENATAL VITAMIN 1 TAB PO SCH (08:43)
[2024-01-11] MEDS: bisacodyL 5 MG TABEC PO SCH (20:21)
--- NOTE | 2024-01-12 06:24 | Obstetrical Progress Note ---
Date of Service January 12, 2024 Assessment & Plan (1) Carrier of group B Streptococcus: (2) Encounter for supervision of normal in multigravida: (3) Obesity: (4) Supervision of normal intrauterine in multigravida: (5) Previous delivery affecting , antepartum: Plan 30 yo post day 2 c section Vital signs reviewed Hgb 11.9 on 11/10. Pending today. Rubella immune Pain well controlled with ibuprofen. Can try tylenol as needed. Continue ambulation Continue formula feeding Admission and Anticipated Discharge Date Admission Date: January 10, 2024 Supervising Physician Co-Signing Physician Notes Resident Physician Supervision Note: I was present with medical student during the history and exam. I discussed the case with the resident and agree with the findings and plan as documented in the note. Any exceptions or clarifications are listed here: Please see progress note for today. Documented By: Annabel Rodriguez, DO Sudha Dos Santos is a 28 yo day 2 s/p C/S at 39.2 weeks without complication. The patient is ambulating. She has not voided stool but has passed gas. She is on a regular diet. She admits to some lochia and rates her pain at a 4 out of 10 severity, she attributes the increased pain to being more active. She showered and ambulated yesterday. Using Motrin and has not had to use Tylenol. Formula feeding. Review of Systems Review of Systems: Resting comfortably this AM in NAD. She denies fevers, chills, SOB, cough, chest pain, heart palpitations, breast pain, discharge, UTI symptoms, or headaches. Physical Exam Physical Exam: General: patient resting comfortably, NAD, non-toxic in appearance, AA&O x 4, answers questions appropriately. Skin: warm, dry, intact Heart: regular RR no m/r/g Lungs: CTAB no rales/rhonchi/wheezes Abd: soft non-distended with normol active bowel sounds, incision intact clean, no bleeding, erythema, or purulent drainage, no signs of infection. Ext: warm, no clubbing/cyanosis or edema Neuro: nonfocal, patient AA&O x 4, speech intact, no facial droop, moving all extremities on command. Results & Data Vital Signs (Past 12 Hours) Vital Signs Temp Pulse Resp BP Pulse Ox O2 Del Method 01/12/24 03:50 36.8 C 69 20 97/63 L 96 Room Air 01/11/24 19:35 36.7 C 77 20 100/67 100 Room Air (3) Obesity Obesity classification: unspecified obesity classification Obesity type: unspecified obesity type Serious obesity comorbidity presence: unspecified whether serious comorbidity present Qualified Code(s): E66.9 - Obesity, unspecified (4) Supervision of normal intrauterine in multigravida Trimester: unspecified trimester Qualified Code(s): Z34.80 - Encounter for supervision of other normal , unspecified trimester
[2024-01-12 06:39] LABS: Hematocrit (blood only) 33.5 % (37.0-47.0)
--- NOTE | 2024-01-12 08:00 | Obstetrical Progress Note ---
Date of Service January 12, 2024 Assessment & Plan (1) Encounter for care and examination after delivery: Plan 30 yo post day 2 c section Vital signs reviewed Hgb 11.9 on 11/10. Pending today. Rubella immune Pain well controlled with ibuprofen. Can try tylenol as needed. Continue ambulation Continue formula feeding Discharge today, instructions reviewed Admission and Anticipated Discharge Date Admission Date: January 10, 2024 Supervising Physician Co-Signing Physician Notes Resident Physician Supervision Note: I was present with Dr. Jorge Harris during the history and exam. I discussed the case with the resident and agree with the findings and plan as documented in the note. Any exceptions or clarifications are listed here: POD#2 doing well. Reviewed DC instructions. Rx Percocet #10 tabs to [facility]. Followup 6w office. Documented By: Annabel Rodriguez, Subjective 28 yo post- day 2 s/p C- section Ambulation: ambulating normally Voiding: no voiding problems Passing Gas:: Yes Diet Tolerance:: regular diet Lochia:: Small Feeding Type:: bottle feeding Current Pain Level: minimal, controlled with pain meds Resting comfortably this AM in NAD. Denies MENDEZ, CP, SOB, N/V/D, LE pain/swelling. Review of Systems Review of Systems: All systems reviewed & are unremarkable except as noted in HPI & below Physical Exam Physical Exam: General: patient resting comfortably, NAD, non-toxic in appearance, AA&O x 4, answers questions appropriately. Skin: warm, dry, intact Heart: regular RR no m/r/g Lungs: CTAB no rales/rhonchi/wheezes Abd: soft non-distended with normol active bowel sounds, incision intact clean, no bleeding, erythema, or purulent drainage, no signs of infection. Ext: warm, no clubbing/cyanosis or edema Neuro: nonfocal, patient AA&O x 4, speech intact, no facial droop, moving all extremities on command. Results & Data Vital Signs (Past 12 Hours) Vital Signs Temp Pulse Resp BP Pulse Ox O2 Del Method 01/12/24 03:50 36.8 C 69 20 97/63 L 96 Room Air Resident Activity Tracking Resident Involvement: Resident Care Provided Care Provided: OB Delivery
[2024-01-12] MEDS ORDERED: bisacodyL 10 MG SUPP PR PRN (12:06)
--- NOTE | 2024-01-14 09:18 | Coding Query ---
PATHOLOGY To promote full compliance with coding requirements relating to patient care, physician participation is requested in all cases of erp project manager uncertainty. Please assist us with the question(s) below: Please review the Pathology report and please document any relevant diagnosis(es) below: Diagnosis(es): None Thank you Krystle VALADEZ
== END 2024-01-12 14:10 | disposition home or self-care (01) | DRG 788 ==
LOC: 4S1 07:00 → EDSTATUS 08:50 → 4E2 16:01